=== PATIENT | female | born 1970 | race Two or more races ===

== ENCOUNTER 2020-01-10 09:41 | Inpatient (IN) | payer MEDICAID ==
[~2020-01-10] VITALS: Ht 154.9 cm; Wt 66.2 kg
[2020-01-10 10:15] VITALS: BP 124/65
--- NOTE | 2020-01-10 10:15 | NUR ---
ED Nurse Note: Pt walked into ED for mid abdominal pain for 3 days. Pt also had nausea and vomitingx3 days. Pt denies diarrhea, bodyaches, chills. She is alert and orientedx4, ambulatory. Set up on monitor. Pt has been seen by GUICHO.
--- NOTE | 2020-01-10 10:38 | Emergency Room Report ---
History of Present Illness General Chief Complaint: Abdominal Pain Source: Patient Present Illness HPI 49-year-old female with no prior medical history presents with epigastric pain radiating to the right upper quadrant on and off for the past 2 days. She states the pain is worsened after eating. Denies dysuria, flank pain, hematuria, history of stone, difficulty voiding, diarrhea, fever, chills, rash, chest pain, shortness of breath, or other complaints The patient's symptoms were gradual onset, severity was moderate, duration since intermittently 1 to 2 days. Quality: Aching Past medical history: Denies Past surgical history: Hysterectomy Smoking: Denies Alcohol use: Denies Drug use: Denies Review of systems: CONST: No fevers or chills, No night sweats PULMONARY: No productive cough, No shortness of breath CARDIAC: No chest pain, No palpitations GI: No vomiting, No diarrhea , No melena_or_BRBPR : No dysuria, No hematuria, No discharge NEURO: No new_focal_weakness_or_numbness, No confusion, No vision changes 14 point Review of Systems is otherwise negative except per HPI Physical Exam: GENERAL: Awake_alert_ nontoxic, no acute distress Spo2 99% on RA -normal EYES: Extraocular muscles are intact. Conjunctivae clear. Lids without swelling ENT: External nose and ear normal_in_appearance. Oropharynx clear. Head_atraumatic, Moist_oral_mucosa NECK: No JVD. No meningismus. No thyromegaly. Supple. Trachea midline RESP: Normal respiratory effort. Symmetric rise. No stridor. Clear_to_auscultation_No_rales_No_wheezes CARDIAC: Regular rate and regular rhytm. No_significant pedal edema. ABDOMEN: Soft. Nondistended. Nontender_No_rebound_or_guarding. Positive Gonzales sign. Negative CVA tenderness to palpation. Negative psoas, negative Rovsing's, negative obturator sign MSK: Normal muscle tone, without rigidity. Extremities without asymmetric deformity or swelling. SKIN: Warm and dry. No visible cyanosis or pallor NEUROLOGIC: Alert, oriented x3. Motor_and_sensation_grossly_intact. No truncal ataxia. Gait_normal Psych: Normal mood and affect, normal judgment and insight - COORDINATION OF CARE Case was discussed with: Patient Any labs and imaging that were ordered were interpreted as part of the medical decision making: Medical Decision Making/Plan: Differential diagnosis includes cholecystitis, choledocholithiasis, hepatitis, small bowel obstruction, volvulus, AAA, pancreatitis, atypical appendicitis, gastroparesis, gastritis, peptic ulcer disease, among others. Patient is well appearing with stable vital signs. Abdominal exam is non peritoneal with no guarding or rebound. Voluntary Gonzales sign. Labs show obstructive transaminitis. Right upper quadrant ultrasound shows dilated common bile duct with stone at the biliary neck. Also has cholelithiasis without gallbladder wall thickening. Given labs and common bile duct dilation, concern for choledocholithiasis. I spoke with Dr. Snell, and reviewed the patients presentation, workup, results, and treatment. They will admit the patient for further care and evaluation, and assume care of the patient at this time. Allergies: Coded Allergies: Shrimp (Verified Allergy, Unknown, 01/10/20) COVID-19 Screening Contact w/high risk pt: No Experienced COVID-19 symptoms?: No COVID-19 Testing performed OFFLINE EDITOR: No Patient History Last Menstrual Period: na Nursing Documentation-PM Past Medical History: No Stated History Physical Exam Vital Signs Date Time Temp Pulse Resp B/P (MAP) Pulse Ox O2 Delivery O2 Flow Rate FiO2 01/10/20 09:48 97.9 69 15 126/67 (86) 98 Room Air Sp02 EP Interpretation: reviewed, normal Medical Decision Making Diagnostic Impression: Primary Impression: Choledocholithiasis Additional Impressions: Transaminitis Postprandial abdominal pain in right upper quadrant Nausea Cholelithiasis EKG Diagnostic Results Troponin ordered: No Rhythm Strip Diag. Results Rhythm Strip Time: 10:37 EP Interpretation: yes Rate: 69 Rhythm: NSR, no PVC's, no ectopy CT/MRI/US Diagnostic Results CT/MRI/US Diagnostic Results : Impression US ABD Complete Indication: Abdominal pain, abnormal liver function tests Technique: Santos-scale and duplex images of the upper abdomen were obtained Comparison: none Findings: Gallbladder demonstrates gallstones. No wall thickening nor pericholecystic fluid Sonographic Gonzales's sign is negative. Common bile duct measures 8 mm in diameter. No intrahepatic biliary ductal dilatation. Liver demonstrates normal echogenicity, no focal abnormality. Portal vein and hepatic veins are patent. Pancreas is unremarkable. Spleen is unremarkable. Left kidney measures 9.2 cm in length. Right kidney measures 10.8 cm length. Both kidneys demonstrate normal echogenicity. There is no hydronephrosis. No focal abnormality . Non- aneurysmal abdominal aorta . Impression: Cholelithiasis Mildly dilated common bile duct. Downstream obstruction not completely excludable. Correlate with liver function tests Reevaluation Time: 10:37 Last Vital Signs Date Time Temp Pulse Resp B/P (MAP) Pulse Ox O2 Delivery O2 Flow Rate FiO2 01/10/20 09:48 97.9 69 15 126/67 (86) 98 Room Air Status: improved Disposition: ADMITTED INPATIENT Admit Decision Time: 10:37 Condition: Stable Scripts No Active Prescriptions or Reported Meds Referrals: NOT CHOSEN IPA/MD,REFERRING (PCP) Patient Instructions: Abdominal Pain During Millie Castro D.O. Jan 10, 2020 10:38
[2020-01-10 10:50] LABS: APPEARANCE,URINE CLEAR; BILIRUBIN, URINE 1+ (NEGATIVE); COLOR,URINE BROWN; GLUCOSE, URINE (UA) NEGATIVE (NEGATIVE); KETONES,URINE 1+ (NEGATIVE); LEUKOCYTE ESTERASE ,URINE 1+ (NEGATIVE); NITRITE,URINE NEGATIVE (NEGATIVE); PH,URINE 5 (4.5-8.0); PROTEIN,URINE 1+ (NEGATIVE); UROBILINOGEN,URINE 4 MG/DL (0.0-1.0)
[2020-01-10 10:53] LABS: ANION GAP 5 mmol/L (5-15); BASOPHILS % (AUTO) 0.9 % (0.0-2.0); BLOOD UREA NITROGEN 18 mg/dL (7-18); CALCIUM 8.8 MG/DL (8.5-10.1); CARBON DIOXIDE 27 MMOL/L (21-32); CHLORIDE 112 MMOL/L (98-107); CREATININE 0.8 MG/DL (0.55-1.30); EOSINOPHILS % (AUTO) 0.2 % (0.0-3.0); HEMATOCRIT 35.2 % (37.0-47.0); HEMOGLOBIN 12.5 G/DL (12.0-16.0); LYMPHOCYTES % (AUTO) 33.9 % (20.0-45.0); MEAN CORPUSCULAR VOLUME 87 FL (80-99); MONOCYTES % (AUTO) 7.3 % (1.0-10.0); NEUTROPHILS % (AUTO) 57.7 % (45.0-75.0); PLATELET COUNT 242 K/UL (150-450); POTASSIUM 3.9 MMOL/L (3.5-5.1); RED BLOOD COUNT 4.03 M/UL (4.20-5.40); RED CELL DISTRIBUTION WIDTH 11.2 % (11.6-14.8); SODIUM 144 MMOL/L (136-145); WHITE BLOOD COUNT 5.7 K/UL (4.8-10.8)
[2020-01-10 11:06] LABS: ALANINE AMINOTRANSFERASE 841 U/L (12-78); ALBUMIN 3.7 G/DL (3.4-5.0); ALBUMIN/GLOBULIN RATIO 1.2 (1.0-2.7); ALKALINE PHOSPHATASE 281 U/L (46-116); ASPARTATE AMINO TRANSFERASE 663 U/L (15-37); BILIRUBIN,TOTAL 1.7 MG/DL (0.2-1.0)
[2020-01-10 11:08] LABS: BILIRUBIN,DIRECT 1.2 MG/DL (0.0-0.3)
[2020-01-10] MEDS ORDERED: Morphine Sulfate 4mg/ml Inj (IV USE ONLY) IVP ONE (12:00)
[2020-01-10] MEDS ORDERED: Piperacillin/Tazobactam 4.5 GM in NS 110 ML IVPB ONE (12:00)
[2020-01-10 12:40] VITALS: BP 127/68
[2020-01-10] MEDS ORDERED: Miralax 17gm pkt ORAL PRN (13:00)
[2020-01-10] MEDS ORDERED: Nitroglycerin Subl 0.4mg tab SL PRN (13:00)
--- NOTE | 2020-01-10 13:33 | NUR ---
REPORT GIVEN TO GISELA PETERSON AT [facility] PATIENT IS TO BE TRANSFERD TO ROOM [facility]IA [facility] NO PAIN NOW
--- NOTE | 2020-01-10 14:12 | Diagnostic Imaging Report ---
Indication: Abdominal pain, abnormal liver function tests Technique: Santos-scale and duplex images of the upper abdomen were obtained Comparison: none Findings: Gallbladder demonstrates gallstones. No wall thickening nor pericholecystic fluid Sonographic Gonzales's sign is negative. Common bile duct measures 8 mm in diameter. No intrahepatic biliary ductal dilatation. Liver demonstrates normal echogenicity, no focal abnormality. Portal vein and hepatic veins are patent. Pancreas is unremarkable. Spleen is unremarkable. Left kidney measures 9.2 cm in length. Right kidney measures 10.8 cm length. Both kidneys demonstrate normal echogenicity. There is no hydronephrosis. No focal abnormality . Non-aneurysmal abdominal aorta . Impression: Cholelithiasis Mildly dilated common bile duct. Downstream obstruction not completely excludable. Correlate with liver function tests
--- NOTE | 2020-01-10 14:30 | NUR ---
NURSE NOTES: Report received from Karissa PETERSON at the ER. Patient admitted via gurney, AxOx4, not in distress, no complaints of pain at this time, last given Morphine IV at ER with relief of pain. Patient is currently NPO with the exception of meds and ice chips, reinforced education and patient verbalized understanding. PIV on left AC patent and intact. Vital signs stable on transfer. Patient's skin is intact. Belongings intact and signed by patient. All admission orders done by Dr. Snell. Bed low and locked, siderails up x 2, call light placed within reach and instructed to call nurse for assistance. Will continue to monitor.
[2020-01-10] MEDS: D5 1/2NS 1,000 ML IV SCH (15:23)
[2020-01-10 16:00] VITALS: BP 120/68
--- NOTE | 2020-01-10 19:32 | NUR ---
NURSE HAND-OFF: Important Events on Shift: Admitted from ER, NPO post midnight; Dr. Ortega notified of referral Patient Status: Stable Diet: Clear liquids, NPO p midnight Pending Orders: None Pending Results/Labs: Labs in AM Pending MD notification: None Latest Vital Signs: Temperature 97.0 , Pulse 59 , B/P 120 /68 , Respiratory Rate 17 , O2 SAT 94 , Room Air, O2 Flow Rate . Vital Sign Comment: Latest Herron Fall Score: 20 Fall Risk: Low Risk Safety Measures: Call light Within Reach, Bed Alarm Zone 1, Side Rails Side Rails x2, Bed position Low and Locked. Fall Precautions: Patient Fall Education Report given to Wing RN.
--- NOTE | 2020-01-10 19:33 | NUR ---
NURSE NOTES: The patient is alert and oriented x4 and was calm and relaxed. She is on bedrest but can ambulate to the bathroom with a steady gait.She has a left AC 20g that is intact and asymptomatic running D5 0.45% NS @ 75 ml/hr well tolerated.The skin is clear and intact.The Bed in low level, call light within easy reach and siderails up x2. Will continue to monitor as indicated.
[2020-01-10 20:00] VITALS: BP 138/80
--- NOTE | 2020-01-10 20:01 | History & Physical ---
History and Physical History & Physicial Dictated for Int Med-Dr Acosta no. [id number] Orestes Gomez MD Jan 10, 2020 20:01
[2020-01-10] MEDS: Heparin 5000 units/ml inj SUBQ SCH (21:20)
--- NOTE | 2020-01-10 22:00 | History and Physical Report ---
DATE OF ADMISSION: 01/10/2020 CHIEF COMPLAINT: The patient is a 49-year-old female, who presents with chief complaint of right upper quadrant pain. HISTORY OF PRESENT ILLNESS: The present illness began two days prior to admission. The patient began to experience epigastric pain. Pain is now located over the right upper quadrant. The patient states symptoms are worse after eating. Pain is on and off. The patient presented to [facility]. An ultrasound of the gallbladder revealed cholelithiasis. The patient is admitted with cholelithiasis to rule out acute cholecystitis. REVIEW OF SYSTEMS: CONSTITUTIONAL: The patient denies weight loss or weight gain. The patient denies fevers or chills. HEENT: The patient denies ear or throat pain. The patient denies headache. CARDIOVASCULAR: The patient denies palpitations or chest pain. CHEST: The patient denies wheeze or shortness of breath. ABDOMINAL: The patient complains of right upper quadrant pain as above. The patient denies nausea, vomiting, diarrhea, or constipation. GENITOURINARY: The patient denies dysuria or increased frequency of urination. NEUROMUSCULAR: The patient denies seizures or generalized weakness. PAST MEDICAL HISTORY: The patient denies. PAST SURGICAL HISTORY: Significant for total abdominal hysterectomy. CURRENT MEDICATIONS: The patient denies. ALLERGIES: No known drug allergies, however, the patient is allergic to shrimp. SOCIAL HISTORY: The patient is and is employed in housekeeping. The patient denies tobacco or alcohol use. PHYSICAL EXAMINATION: VITAL SIGNS: Temperature 97.9, respirations 15, pulse 69, and blood pressure 126/67. GENERAL: The patient is a well-developed, well-nourished female, in no apparent distress. HEENT: Eyes, pupils equal and responsive to light and accommodation. Extraocular movements are intact. NECK: Supple. No lymphadenopathy. CHEST: Lungs are clear to auscultation bilaterally without wheezes or rales. CARDIOVASCULAR: Regular rhythm and rate. S1, S2 are normal without murmurs, rubs, or gallops. ABDOMEN: Soft, nondistended with decreased bowel sounds. There is tenderness to palpation over the epigastric region and right upper quadrant. There is no rebound or guarding noted. EXTREMITIES: Negative for clubbing, cyanosis, or edema. RECTAL: Not performed. GENITAL: Not performed. NEUROLOGICAL: Cranial nerves II through XII are grossly intact without focal deficits. Motor strength is 5/5 bilaterally intact. Deep tendon reflexes are 2+, plantar. LABORATORY STUDIES: WBC 5.7, hemoglobin 12.5, hematocrit 35.2, platelets 242,000. Sodium 144, potassium 3.9, chloride 112, CO2 of 27, BUN 18, creatinine 0.8, glucose 114. Total bilirubin elevated at 1.7, direct bilirubin elevated at 1.2, AST elevated at 663, ALT elevated at 841, alkaline phosphatase at 81. An abdominal ultrasound revealed mildly dilated common bile duct with multiple gallstones in the gallbladder. Gonzales sign was negative. There was no inflammation of the gallbladder wall. ASSESSMENT: This is a 49-year-old female with: 1. Right upper quadrant abdominal pain. 2. Cholelithiasis. 3. Elevated liver function tests. TREATMENT: Cholelithiasis/elevated liver function tests. A Gastroenterology consultation has been obtained with Dr. Roe Ortega. A General Surgery consultation has been obtained with Dr. Cabral. We will follow recommendations of Gastroenterology and Surgery. Orestes Gomez M.D. DR: Jasson JOB#: [id number] CC:
[2020-01-11] VITALS: BP 156/80
[2020-01-11] MEDS: D5 1/2NS 1,000 ML IV SCH ×2 (03:25→16:25)
[2020-01-11 04:00] VITALS: BP 140/78
[2020-01-11 06:06] LABS: BASOPHILS % (AUTO) 2.8 % (0.0-2.0); EOSINOPHILS % (AUTO) 2.6 % (0.0-3.0); HEMATOCRIT 39.9 % (37.0-47.0); HEMOGLOBIN 14.1 G/DL (12.0-16.0); LYMPHOCYTES % (AUTO) 40.3 % (20.0-45.0); MEAN CORPUSCULAR VOLUME 88 FL (80-99); MONOCYTES % (AUTO) 5.5 % (1.0-10.0); NEUTROPHILS % (AUTO) 48.8 % (45.0-75.0); PLATELET COUNT 203 K/UL (150-450); RED BLOOD COUNT 4.56 M/UL (4.20-5.40); RED CELL DISTRIBUTION WIDTH 11.3 % (11.6-14.8); WHITE BLOOD COUNT 6.7 K/UL (4.8-10.8)
[2020-01-11 06:25] LABS: ALANINE AMINOTRANSFERASE 637 U/L (12-78); ALBUMIN 3.4 G/DL (3.4-5.0); ALBUMIN/GLOBULIN RATIO 0.9 (1.0-2.7); ALKALINE PHOSPHATASE 265 U/L (46-116); AMYLASE 93 U/L (25-115); ANION GAP 10 mmol/L (5-15); ASPARTATE AMINO TRANSFERASE 289 U/L (15-37); BILIRUBIN,TOTAL 0.8 MG/DL (0.2-1.0); BLOOD UREA NITROGEN 9 mg/dL (7-18); CALCIUM 8.7 MG/DL (8.5-10.1); CARBON DIOXIDE 26 MMOL/L (21-32); CHLORIDE 106 MMOL/L (98-107); CREATININE 0.7 MG/DL (0.55-1.30); POTASSIUM 3.8 MMOL/L (3.5-5.1); SODIUM 141 MMOL/L (136-145)
--- NOTE | 2020-01-11 07:09 | NUR ---
HAND-OFF: Report given to Kasandra PETERSON.The patient remained NPO as indicated
--- NOTE | 2020-01-11 07:09 | NUR ---
NURSE NOTES: Report received from Wing RN. AxOx4, not in distress, no complaints of pain overnight. Patient is currently NPO with the exception of meds and ice chips, reinforced education and patient verbalized understanding. PIV on left AC patent and intact infusing D5 1/2 NS @ 75ml/hr. Bed low and locked, siderails up x 2, call light placed within reach and instructed to call nurse for assistance. Will continue to monitor.
[2020-01-11 08:00] VITALS: BP 107/77
[2020-01-11] MEDS: Pantoprazole Inj IVP SCH (09:44)
[2020-01-11] MEDS: Heparin 5000 units/ml inj SUBQ SCH ×2 (09:45→21:40)
--- NOTE | 2020-01-11 11:47 | Consultation ---
History of Present Illness General Date patient seen: Jan 11, 2020 Chief Complaint: Abdominal Pain Present Illness HPI 49-year-old female with no prior medical history presents with epigastric pain radiating to the right upper quadrant on and off for the past 2 days. An abdominal US showed dilated common bile duct. She is admitted for further management. Allergies: Coded Allergies: Shrimp (Verified Allergy, Unknown, 01/10/20) Medication History No Active Prescriptions or Reported Meds Patient History Healthcare decision maker Resuscitation status Advanced Directive on File Review of Systems All Other Systems: negative except mentioned in HPI Physical Exam General Appearance: WD/WN Lines, tubes and drains: peripheral HEENT: normocephalic, atraumatic Neck: non-tender, supple Respiratory/Chest: chest wall non-tender, lungs clear Breasts: no masses Cardiovascular/Chest: normal rate Abdomen: normal bowel sounds Genitourinary/Rectal: normal genital exam Extremities: normal range of motion, non-tender Last 24 Hour Vital Signs Date Time Temp Pulse Resp B/P (MAP) Pulse Ox O2 Delivery O2 Flow Rate FiO2 01/11/20 09:00 Room Air 01/11/20 08:00 97.7 61 16 107/77 (87) 98 01/11/20 04:00 97.5 62 18 140/78 (98) 99 01/11/20 00:00 97.0 63 18 156/80 (105) 100 01/10/20 21:00 Room Air 01/10/20 20:00 96.8 68 18 138/80 (99) 97 01/10/20 16:00 97.0 59 17 120/68 (85) 94 01/10/20 15:13 Room Air 01/10/20 13:30 97.8 78 18 120/70 99 Room Air 01/10/20 12:40 97.8 72 17 127/68 98 Room Air 96 01/10/20 12:38 97.8 Intake and Output 01/10/20 01/11/20 19:00 07:00 Intake Total 375 ml 1185 ml Balance 375 ml 1185 ml Intake Oral 300 ml IV Total 75 ml 825 ml Other 360 ml # Voids 3 Laboratory Tests Test 01/11/20 05:05 White Blood Count 6.7 K/UL (4.8-10.8) Red Blood Count 4.56 M/UL (4.20-5.40) Hemoglobin 14.1 G/DL (12.0-16.0) Hematocrit 39.9 % (37.0-47.0) Mean Corpuscular Volume 88 FL (80-99) Mean Corpuscular Hemoglobin 31.0 PG (27.0-31.0) Mean Corpuscular Hemoglobin Concent 35.4 G/DL (32.0-36.0) Red Cell Distribution Width 11.3 % (11.6-14.8) L Platelet Count 203 K/UL (150-450) Mean Platelet Volume 6.8 FL (6.5-10.1) Neutrophils (%) (Auto) 48.8 % (45.0-75.0) Lymphocytes (%) (Auto) 40.3 % (20.0-45.0) Monocytes (%) (Auto) 5.5 % (1.0-10.0) Eosinophils (%) (Auto) 2.6 % (0.0-3.0) Basophils (%) (Auto) 2.8 % (0.0-2.0) H Activated Partial Thromboplast Time 23 SEC (23-33) Sodium Level 141 MMOL/L (136-145) Potassium Level 3.8 MMOL/L (3.5-5.1) Chloride Level 106 MMOL/L (98-107) Carbon Dioxide Level 26 MMOL/L (21-32) Anion Gap 10 mmol/L (5-15) Blood Urea Nitrogen 9 mg/dL (7-18) Creatinine 0.7 MG/DL (0.55-1.30) Estimat Glomerular Filtration Rate > 60 mL/min (>60) Glucose Level 108 MG/DL (74-106) H Calcium Level 8.7 MG/DL (8.5-10.1) Total Bilirubin 0.8 MG/DL (0.2-1.0) Aspartate Amino Transf (AST/SGOT) 289 U/L (15-37) H Alanine Aminotransferase (ALT/SGPT) 637 U/L (12-78) H Alkaline Phosphatase 265 U/L (46-116) H Total Protein 7.4 G/DL (6.4-8.2) Albumin 3.4 G/DL (3.4-5.0) Globulin 4.0 g/dL Albumin/Globulin Ratio 0.9 (1.0-2.7) L Amylase Level 93 U/L (25-115) Lipase 250 U/L (73-393) Height (Feet): 5 Height (Inches): 1.00 Weight (Pounds): 143 Medications Current Medications Medications (Trade) Dose Ordered Sig/Isabela Route PRN Reason Start Time Stop Time Status Last Admin Dose Admin Acetaminophen (Tylenol) 650 mg Q4H PRN ORAL fever (T>100.5F) 01/10/20 13:00 02/09/20 12:59 Dextrose (Dextrose 50%) 25 ml Q30M PRN IV Hypoglycemia 01/10/20 13:00 04/09/20 12:59 Dextrose (Dextrose 50%) 50 ml Q30M PRN IV Hypoglycemia 01/10/20 13:00 04/09/20 12:59 Dextrose/Sodium Chloride 1,000 ml @ 75 mls/hr [id number] IV 01/10/20 13:45 02/09/20 13:44 01/11/20 03:25 Diphenhydramine HCl (Benadryl) 25 mg Q6H PRN ORAL Itching/Pruritis 01/10/20 13:00 02/09/20 12:59 Heparin Sodium (Porcine) (Heparin 5000 units/ml) 5,000 units EVERY 12 HOURS SUBQ 01/10/20 21:00 02/24/20 20:59 01/11/20 09:45 Nitroglycerin (Ntg) 0.4 mg Q5M X 3 DOSES PRN SL Prn Chest Pain 01/10/20 13:00 02/09/20 12:59 Ondansetron HCl (Zofran) 4 mg Q6H PRN IVP Nausea & Vomiting 01/10/20 13:00 02/09/20 12:59 Pantoprazole (Protonix) 40 mg DAILY IVP 01/11/20 09:00 02/10/20 08:59 01/11/20 09:44 Polyethylene Glycol (Miralax) 17 gm HSPRN PRN ORAL Constipation 01/10/20 13:00 02/09/20 12:59 Temazepam (Restoril) 15 mg HSPRN PRN ORAL Insomnia 01/10/20 13:00 01/17/20 12:59 Assessment/Plan Problem List: (1) Intractable abdominal pain ICD Codes: R10.9 - Unspecified abdominal pain SNOMED: 49944157 (2) Choledocholithiasis ICD Codes: K80.50 - Calculus of bile duct without cholangitis or cholecystitis without obstruction SNOMED: 404470685, 946532530 Assessment/Plan: NPO iv fluids symptomatic treatment GI to see dvt prophylaxis. Cathy Snell MD Jan 11, 2020 11:47
[2020-01-11 12:00] VITALS: BP 132/80
--- NOTE | 2020-01-11 12:21 | General Progress Note ---
Subjective ROS Limited/Unobtainable: Yes Allergies: Coded Allergies: Shrimp (Verified Allergy, Unknown, 01/10/20) Objective Last 24 Hour Vital Signs Date Time Temp Pulse Resp B/P (MAP) Pulse Ox O2 Delivery O2 Flow Rate FiO2 01/11/20 09:00 Room Air 01/11/20 08:00 97.7 61 16 107/77 (87) 98 01/11/20 04:00 97.5 62 18 140/78 (98) 99 01/11/20 00:00 97.0 63 18 156/80 (105) 100 01/10/20 21:00 Room Air 01/10/20 20:00 96.8 68 18 138/80 (99) 97 01/10/20 16:00 97.0 59 17 120/68 (85) 94 01/10/20 15:13 Room Air 01/10/20 13:30 97.8 78 18 120/70 99 Room Air 01/10/20 12:40 97.8 72 17 127/68 98 Room Air 96 01/10/20 12:38 97.8 Intake and Output 01/10/20 01/11/20 19:00 07:00 Intake Total 375 ml 1185 ml Balance 375 ml 1185 ml Intake Oral 300 ml IV Total 75 ml 825 ml Other 360 ml # Voids 3 Laboratory Tests 01/11/20 05:05: White Blood Count 6.7, Red Blood Count 4.56, Hemoglobin 14.1, Hematocrit 39.9, Mean Corpuscular Volume 88, Mean Corpuscular Hemoglobin 31.0, Mean Corpuscular Hemoglobin Concent 35.4, Red Cell Distribution Width 11.3L, Platelet Count 203, Mean Platelet Volume 6.8, Neutrophils (%) (Auto) 48.8, Lymphocytes (%) (Auto) 40.3, Monocytes (%) (Auto) 5.5, Eosinophils (%) (Auto) 2.6, Basophils (%) (Auto) 2.8H, Activated Partial Thromboplast Time 23, Sodium Level 141, Potassium Level 3.8, Chloride Level 106, Carbon Dioxide Level 26, Anion Gap 10, Blood Urea Nitrogen 9, Creatinine 0.7, Estimat Glomerular Filtration Rate > 60, Glucose Level 108H, Calcium Level 8.7, Total Bilirubin 0.8, Aspartate Amino Transf (AST/SGOT) 289H, Alanine Aminotransferase (ALT/SGPT) 637H, Alkaline Phosphatase 265H, Total Protein 7.4, Albumin 3.4, Globulin 4.0, Albumin/Globulin Ratio 0.9L, Amylase Level 93, Lipase 250 Height (Feet): 5 Height (Inches): 1.00 Weight (Pounds): 143 General Appearance: no apparent distress EENT: normal ENT inspection Neck: supple Cardiovascular: normal rate Respiratory/Chest: lungs clear Abdomen: hypoactive bowel sounds, tender Extremities: non-tender Assessment/Plan Problem List: (1) Cholelithiasis ICD Codes: K80.20 - Calculus of gallbladder without cholecystitis without obstruction SNOMED: 882951667, 201839200 (2) Nausea ICD Codes: R11.0 - Nausea SNOMED: 842475692 (3) Transaminitis ICD Codes: R74.01 - Elevation of levels of liver transaminase levels SNOMED: 320821063, 309616526 (4) Intractable abdominal pain ICD Codes: R10.9 - Unspecified abdominal pain SNOMED: 11646650 Assessment/Plan: us reviewed ordered ERCP plan ERCP if needed repeat labs in Roe Nugent MD Jan 11, 2020 12:21
--- NOTE | 2020-01-11 13:41 | NUR ---
NURSE NOTES: Patient brought down to MRI in stable condition via wheelchair. PIV patent on left AC.
--- NOTE | 2020-01-11 14:50 | NUR ---
NURSE NOTES: Patient returned from MRI procedure in stable condition. Received orders from Dr. Ortega that patient may have clear liquid diet. Orders noted and carried out.
--- NOTE | 2020-01-11 15:58 | Internal Med Progress Note ---
Subjective Physician Name Zan Acosta Attending Physician Zan Acosta MD Current Medications Medications (Trade) Dose Ordered Sig/Isabela Route PRN Reason Start Time Stop Time Status Last Admin Dose Admin Acetaminophen (Tylenol) 650 mg Q4H PRN ORAL fever (T>100.5F) 01/10/20 13:00 02/09/20 12:59 Dextrose (Dextrose 50%) 25 ml Q30M PRN IV Hypoglycemia 01/10/20 13:00 04/09/20 12:59 Dextrose (Dextrose 50%) 50 ml Q30M PRN IV Hypoglycemia 01/10/20 13:00 04/09/20 12:59 Dextrose/Sodium Chloride 1,000 ml @ 75 mls/hr [id number] IV 01/10/20 13:45 02/09/20 13:44 01/11/20 03:25 Diphenhydramine HCl (Benadryl) 25 mg Q6H PRN ORAL Itching/Pruritis 01/10/20 13:00 02/09/20 12:59 Heparin Sodium (Porcine) (Heparin 5000 units/ml) 5,000 units EVERY 12 HOURS SUBQ 01/10/20 21:00 02/24/20 20:59 01/11/20 09:45 Nitroglycerin (Ntg) 0.4 mg Q5M X 3 DOSES PRN SL Prn Chest Pain 01/10/20 13:00 02/09/20 12:59 Ondansetron HCl (Zofran) 4 mg Q6H PRN IVP Nausea & Vomiting 01/10/20 13:00 02/09/20 12:59 Pantoprazole (Protonix) 40 mg DAILY IVP 01/11/20 09:00 02/10/20 08:59 01/11/20 09:44 Polyethylene Glycol (Miralax) 17 gm HSPRN PRN ORAL Constipation 01/10/20 13:00 02/09/20 12:59 Temazepam (Restoril) 15 mg HSPRN PRN ORAL Insomnia 01/10/20 13:00 01/17/20 12:59 Allergies: Coded Allergies: Shrimp (Verified Allergy, Unknown, 01/10/20) Subjective awake, alert, responsive, denies any abdominal pain or chest pain, liver function improving. Objective Last Vital Signs Date Time Temp Pulse Resp B/P (MAP) Pulse Ox O2 Delivery O2 Flow Rate FiO2 01/11/20 12:00 98.1 69 16 132/80 (97) 99 01/11/20 09:00 Room Air 01/10/20 12:40 96 Laboratory Tests Test 01/11/20 05:05 White Blood Count 6.7 K/UL (4.8-10.8) Red Blood Count 4.56 M/UL (4.20-5.40) Hemoglobin 14.1 G/DL (12.0-16.0) Hematocrit 39.9 % (37.0-47.0) Mean Corpuscular Volume 88 FL (80-99) Mean Corpuscular Hemoglobin 31.0 PG (27.0-31.0) Mean Corpuscular Hemoglobin Concent 35.4 G/DL (32.0-36.0) Red Cell Distribution Width 11.3 % (11.6-14.8) L Platelet Count 203 K/UL (150-450) Mean Platelet Volume 6.8 FL (6.5-10.1) Neutrophils (%) (Auto) 48.8 % (45.0-75.0) Lymphocytes (%) (Auto) 40.3 % (20.0-45.0) Monocytes (%) (Auto) 5.5 % (1.0-10.0) Eosinophils (%) (Auto) 2.6 % (0.0-3.0) Basophils (%) (Auto) 2.8 % (0.0-2.0) H Activated Partial Thromboplast Time 23 SEC (23-33) Sodium Level 141 MMOL/L (136-145) Potassium Level 3.8 MMOL/L (3.5-5.1) Chloride Level 106 MMOL/L (98-107) Carbon Dioxide Level 26 MMOL/L (21-32) Anion Gap 10 mmol/L (5-15) Blood Urea Nitrogen 9 mg/dL (7-18) Creatinine 0.7 MG/DL (0.55-1.30) Estimat Glomerular Filtration Rate > 60 mL/min (>60) Glucose Level 108 MG/DL (74-106) H Calcium Level 8.7 MG/DL (8.5-10.1) Total Bilirubin 0.8 MG/DL (0.2-1.0) Aspartate Amino Transf (AST/SGOT) 289 U/L (15-37) H Alanine Aminotransferase (ALT/SGPT) 637 U/L (12-78) H Alkaline Phosphatase 265 U/L (46-116) H Total Protein 7.4 G/DL (6.4-8.2) Albumin 3.4 G/DL (3.4-5.0) Globulin 4.0 g/dL Albumin/Globulin Ratio 0.9 (1.0-2.7) L Amylase Level 93 U/L (25-115) Lipase 250 U/L (73-393) Microbiology Date/Time Source Procedure Growth Status 01/10/20 11:38 Nasopharynx SARS-CoV-2 RdRp Gene Assay - Final Complete Intake and Output 01/10/20 01/11/20 19:00 07:00 Intake Total 375 ml 1185 ml Balance 375 ml 1185 ml Intake Oral 300 ml IV Total 75 ml 825 ml Other 360 ml # Voids 3 Objective Physical Exam General: No acute distress, awake and alert HEENT: NCAT, sclera anicteric, PERRL, EOMI. Neck: Supple, no significant jugular venous distention, Lungs: Good inspiratory effort, no accessory muscle use, clear to auscultation bilaterally, no Wheeze or Rales. Heart: Regular rate and rhythm, normal S1/S2, no murmurs/gallops Abdomen: soft, nontender, nondistended. Normoactive bowel sounds. / Rectal: Refused and deferred. Extremities: No Cyanosis , clubbing or edema. Neuro: A&O x 3, Able to move all extremities Skin: warm, no rashes or lesions Psych: Normal mood and affect Assessment/Plan Assessment/Plan ASSESSMENT: This is a 49-year-old female with: 1. Right upper quadrant abdominal pain. 2. Cholelithiasis. 3. Elevated liver function tests. TREATMENT: Cholelithiasis/elevated liver function tests. A Gastroenterology consultation has been obtained with Dr. Roe Ortega. A General Surgery consultation has been obtained with Dr. Cabral. We will follow recommendations of Gastroenterology and Surgery. Zan Acosta MD Jan 11, 2020 15:58
[2020-01-11 16:00] VITALS: BP 105/65
--- NOTE | 2020-01-11 16:05 | NUR ---
CASE MANAGEMENT:INITIAL REVIEW 49 YR OLD FEMALE FROM HOME CC;ABDOMINAL PAIN SI;CHOLEDOCHOLITHIASIS. CHOLELITHIASIS. TRANSAMINITIS. 97.9 69 16 126/67 98% ON RA T-BILI 1.7 D-BILI 1.2 AST 663 ALT 841 ALP 281 UA+ PROTEIN, KETONES, BILIRUBIN, UROBILINOGEN, LEUKOCYTE ESTERASE COVID RAPID ~ NEGATIVE ABD US ~ Cholelithiasis Mildly dilated common bile duct. Downstream obstruction not completely excludable. Correlate with liver function tests IS;ZOFRAN IV ZOSYN IV MORPHINE IV ADMITTED TO MED SURG 01/10/20 MED SURG STATUS DCP;FROM HOME
--- NOTE | 2020-01-11 16:26 | Diagnostic Imaging Report ---
Indication: Abdominal pain Technique: Coronal and axial single shot fast spin-echo breath-hold, axial T2 FRFSE, 2-D thick slab MRCP, AXIAL 2-D FIESTA fat saturated, axial 3-D dual echo breath-hold, water weighted axial LAVA FLEX, revealed 3-D MRCP images were obtained of the abdomen. MIP reconstructions were generated of the bile ducts Comparison: none Findings: Gallbladder contains multiple gallstones, also reported on prior sonogram. There is questionably a small amount of pericholecystic fluid and gallbladder wall edema, best appreciated on the coronal MRCP and T2. The common bile duct is ectatic, measuring up to 10 mm in diameter, but there is no evidence of downstream obstructive lesion or choledocholithiasis. The intrahepatic ducts are unremarkable. The pancreatic duct is not well-demonstrated. The liver demonstrates a tiny cyst in segment 2. The pancreas, spleen, adrenals are unremarkable. There are bilateral renal cysts noted. The included pelvic viscera on the coronal images are unremarkable. Impression: Cholelithiasis Equivocal mild gallbladder wall thickening and edema raises possibility of acute cholecystitis. Consider hepatobiliary nuclear scan if there is high clinical suspicion. Mildly ectatic extrahepatic bile ducts, without evidence of choledocholithiasis or other downstream obstructive lesion Incidental findings of hepatic and renal cysts
--- NOTE | 2020-01-11 19:00 | NUR ---
NURSE NOTES: Received report from KRISETN Slaughter. AAO x 4, on room air, ambulatory. IV site intact and running IVF. Denies pain on abd. No acute distress noted. Bed locked, lowest position, alarm on, side rails up, call light within reach. Will continue to monitor.
--- NOTE | 2020-01-11 19:01 | NUR ---
NURSE HAND-OFF: Important Events on Shift:S/P MRI abdomen without contrast, diet advanced to clear liquids Patient Status: Stable Diet: Clear Liquid Pending Orders: None Pending Results/Labs:Labs in AM Pending MD notification: Latest Vital Signs: Temperature 97.5 , Pulse 67 , B/P 105 /65 , Respiratory Rate 16 , O2 SAT 98 , Room Air, O2 Flow Rate . Vital Sign Comment: Latest [place] Fall Score: 20 Fall Risk: Low Risk Safety Measures: Call light Within Reach, Bed Alarm Zone 1, Side Rails Side Rails x1, Bed position Low and Locked. Fall Precautions: Yellow Socks Yellow Gown Door Sign Patient Fall Education Report given to Esther PETERSON.
[2020-01-11 20:00] VITALS: BP 131/76
--- NOTE | 2020-01-11 20:31 | Consultation ---
History of Present Illness General Date patient seen: Jan 11, 2020 Reason for Hospitalization: Abdominal Pain Present Illness HPI 49F presented with acute RUQ abd pain radiating to back with associated nausea. noted to have abnormal lft and cholelithiasis. admitted for care. surgery called to evaluate. patient seen, chart reviewed, patient examined. states pain resolved now. minimal nausa. tolerating clears. US and MRI noted Allergies: Coded Allergies: Shrimp (Verified Allergy, Unknown, 01/10/20) COVID-19 Screening Contact w/high risk pt: No Experienced COVID-19 symptoms?: No Medication History No Active Prescriptions or Reported Meds Patient History History Provided By: Patient, Medical Record, PMD Healthcare decision maker Resuscitation status Advanced Directive on File Past Medical/Surgical History Past Medical/Surgical History: (1) Choledocholithiasis (2) Transaminitis (3) Nausea (4) Postprandial abdominal pain in right upper quadrant (5) Intractable abdominal pain (6) Cholelithiasis Review of Systems Review of Symptoms General ROS: no weight loss or fever Psychological ROS: no depression or mood changes, no memory loss Ophthalmic ROS: no visual changes or eye irritation ENT ROS: no nasal congestion, hearing loss, dizziness Allergy and Immunology ROS: no allergic symptoms or urticaria Hematological and Lymphatic ROS: no swollen glands, unusual bleeding or bruising Endocrine ROS: no polyuria, polydipsia, weight changes, temperature intolerance Respiratory ROS: no cough, shortness of breath, or wheezing Cardiovascular ROS: no chest pain or dyspnea on exertion Gastrointestinal ROS: denies abdominal pain, bright red blood in stool. Musculoskeletal ROS: no myalgias or arthralgias Neurological ROS: no TIA or stroke symptoms Dermatological ROS: no new or changing skin lesions, rashes or pruritis Physical Exam Physical Exam General appearance: alert, cooperative, no distress, appears stated age Head: Normocephalic, without obvious abnormality, atraumatic Eyes: conjunctivae/corneas clear. PERRL, EOM's intact. Fundi benign Throat: Lips, mucosa, and tongue normal. Teeth and gums normal Neck: supple, symmetrical, trachea midline, no adenopathy, thyroid: not enlarged, symmetric, no tenderness/mass/nodules, no carotid bruit and no JVD Lungs: clear to auscultation bilaterally Heart: regular rate and rhythm, S1, S2 normal, no murmur, click, rub or gallop Abdomen: soft, non-tender. Bowel sounds normal. No masses, no organomegaly Extremities: extremities normal, atraumatic, no cyanosis or edema Pulses: 2+ and symmetric Skin: Skin color, texture, turgor normal. No rashes or lesions Neurologic: Grossly normal Last 24 Hour Vital Signs Date Time Temp Pulse Resp B/P (MAP) Pulse Ox O2 Delivery O2 Flow Rate FiO2 01/11/20 16:00 97.5 67 16 105/65 (78) 98 01/11/20 12:00 98.1 69 16 132/80 (97) 99 01/11/20 09:00 Room Air 01/11/20 08:00 97.7 61 16 107/77 (87) 98 01/11/20 04:00 97.5 62 18 140/78 (98) 99 01/11/20 00:00 97.0 63 18 156/80 (105) 100 01/10/20 21:00 Room Air Intake and Output 01/10/20 01/11/20 19:00 07:00 Intake Total 375 ml 1185 ml Balance 375 ml 1185 ml Intake Oral 300 ml IV Total 75 ml 825 ml Other 360 ml # Voids 3 Laboratory Tests Test 01/11/20 05:05 White Blood Count 6.7 K/UL (4.8-10.8) Red Blood Count 4.56 M/UL (4.20-5.40) Hemoglobin 14.1 G/DL (12.0-16.0) Hematocrit 39.9 % (37.0-47.0) Mean Corpuscular Volume 88 FL (80-99) Mean Corpuscular Hemoglobin 31.0 PG (27.0-31.0) Mean Corpuscular Hemoglobin Concent 35.4 G/DL (32.0-36.0) Red Cell Distribution Width 11.3 % (11.6-14.8) L Platelet Count 203 K/UL (150-450) Mean Platelet Volume 6.8 FL (6.5-10.1) Neutrophils (%) (Auto) 48.8 % (45.0-75.0) Lymphocytes (%) (Auto) 40.3 % (20.0-45.0) Monocytes (%) (Auto) 5.5 % (1.0-10.0) Eosinophils (%) (Auto) 2.6 % (0.0-3.0) Basophils (%) (Auto) 2.8 % (0.0-2.0) H Activated Partial Thromboplast Time 23 SEC (23-33) Sodium Level 141 MMOL/L (136-145) Potassium Level 3.8 MMOL/L (3.5-5.1) Chloride Level 106 MMOL/L (98-107) Carbon Dioxide Level 26 MMOL/L (21-32) Anion Gap 10 mmol/L (5-15) Blood Urea Nitrogen 9 mg/dL (7-18) Creatinine 0.7 MG/DL (0.55-1.30) Estimat Glomerular Filtration Rate > 60 mL/min (>60) Glucose Level 108 MG/DL (74-106) H Calcium Level 8.7 MG/DL (8.5-10.1) Total Bilirubin 0.8 MG/DL (0.2-1.0) Aspartate Amino Transf (AST/SGOT) 289 U/L (15-37) H Alanine Aminotransferase (ALT/SGPT) 637 U/L (12-78) H Alkaline Phosphatase 265 U/L (46-116) H Total Protein 7.4 G/DL (6.4-8.2) Albumin 3.4 G/DL (3.4-5.0) Globulin 4.0 g/dL Albumin/Globulin Ratio 0.9 (1.0-2.7) L Amylase Level 93 U/L (25-115) Lipase 250 U/L (73-393) Height (Feet): 5 Height (Inches): 1.00 Weight (Pounds): 143 Medications Current Medications Medications (Trade) Dose Ordered Sig/Isabela Route PRN Reason Start Time Stop Time Status Last Admin Dose Admin Acetaminophen (Tylenol) 650 mg Q4H PRN ORAL fever (T>100.5F) 01/10/20 13:00 02/09/20 12:59 Dextrose (Dextrose 50%) 25 ml Q30M PRN IV Hypoglycemia 01/10/20 13:00 04/09/20 12:59 Dextrose (Dextrose 50%) 50 ml Q30M PRN IV Hypoglycemia 01/10/20 13:00 04/09/20 12:59 Dextrose/Sodium Chloride 1,000 ml @ 75 mls/hr [id number] IV 01/10/20 13:45 02/09/20 13:44 01/11/20 03:25 Diphenhydramine HCl (Benadryl) 25 mg Q6H PRN ORAL Itching/Pruritis 01/10/20 13:00 02/09/20 12:59 Heparin Sodium (Porcine) (Heparin 5000 units/ml) 5,000 units EVERY 12 HOURS SUBQ 01/10/20 21:00 02/24/20 20:59 01/11/20 09:45 Nitroglycerin (Ntg) 0.4 mg Q5M X 3 DOSES PRN SL Prn Chest Pain 01/10/20 13:00 02/09/20 12:59 Ondansetron HCl (Zofran) 4 mg Q6H PRN IVP Nausea & Vomiting 01/10/20 13:00 02/09/20 12:59 Pantoprazole (Protonix) 40 mg DAILY IVP 01/11/20 09:00 02/10/20 08:59 01/11/20 09:44 Polyethylene Glycol (Miralax) 17 gm HSPRN PRN ORAL Constipation 01/10/20 13:00 02/09/20 12:59 Temazepam (Restoril) 15 mg HSPRN PRN ORAL Insomnia 01/10/20 13:00 01/17/20 12:59 Assessment/Plan Problem List: (1) Choledocholithiasis Assessment & Plan: Gallbladder contains multiple gallstones, also reported on prior sonogram. There is questionably a small amount of pericholecystic fluid and gallbladder wall edema, best appreciated on the coronal MRCP and T2. The common bile duct is ectatic, measuring up to 10 mm in diameter, but there is no evidence of downstream obstructive lesion or choledocholithiasis. The intrahepatic ducts are unremarkable. The pancreatic duct is not well-demonstrated. The liver demonstrates a tiny cyst in segment 2. The pancreas, spleen, adrenals are unremarkable. There are bilateral renal cysts noted. The included pelvic viscera on the coronal images are unremarkable. Impression: Cholelithiasis Equivocal mild gallbladder wall thickening and edema raises possibility of acute cholecystitis. Consider hepatobiliary nuclear scan if there is high clinical suspicion. Mildly ectatic extrahepatic bile ducts, without evidence of choledocholithiasis or other downstream obstructive lesion possible passed stone. ICD Codes: K80.50 - Calculus of bile duct without cholangitis or cholecystitis without obstruction SNOMED: 053231455, 030930145 (2) Transaminitis ICD Codes: R74.01 - Elevation of levels of liver transaminase levels SNOMED: 387764823, 395914696 (3) Nausea ICD Codes: R11.0 - Nausea SNOMED: 632443428 (4) Postprandial abdominal pain in right upper quadrant ICD Codes: R10.11 - Right upper quadrant pain SNOMED: 971294454 (5) Intractable abdominal pain ICD Codes: R10.9 - Unspecified abdominal pain SNOMED: 10235074 (6) Cholelithiasis Assessment & Plan: 49F biliary colic afebrile HD stable labs improved MRI and US noted currently pain resolved no n/v/f/c okay for trial diet outpatient f/u with pcp for surgery referral and consideration of elective cholecystectomy thank you ICD Codes: K80.20 - Calculus of gallbladder without cholecystitis without obstruction SNOMED: 515481605, 934314825 Eliel Cabral Jan 11, 2020 20:31
[2020-01-12] VITALS: BP 121/56
[2020-01-12 04:00] VITALS: BP 118/67
[2020-01-12] MEDS: D5 1/2NS 1,000 ML IV SCH ×2 (05:39→19:05)
--- NOTE | 2020-01-12 06:33 | NUR ---
NURSE HAND-OFF: Important Events on Shift:None Patient Status: stable Diet: Reg Pending Orders: N Pending Results/Labs:AM labs Pending MD notification:N Latest Vital Signs: Temperature 98.0 , Pulse 58 , B/P 118 /67 , Respiratory Rate 18 , O2 SAT 96 , Room Air, O2 Flow Rate . Vital Sign Comment: [] Latest [place] Fall Score: 20 Fall Risk: Low Risk Safety Measures: Call light Within Reach, Bed Alarm Zone 1, Side Rails Side Rails x1, Bed position Low and Locked. Fall Precautions: Yellow Socks Yellow Gown Door Sign Patient Fall Education Addendum: 01/12/20 at 0717 by JULIANA CARRASCO RN RN HAND-OFF: Report given to
--- NOTE | 2020-01-12 07:12 | NUR ---
NURSE NOTES: Pt c/o pain on R shoulder 08/11. Received order from Dr. Acosta Tylenol #3 1tab po Q6 prn pain.
[2020-01-12 07:32] LABS: BASOPHILS % (AUTO) 0.9 % (0.0-2.0); EOSINOPHILS % (AUTO) 2.4 % (0.0-3.0); HEMATOCRIT 39.2 % (37.0-47.0); HEMOGLOBIN 13.9 G/DL (12.0-16.0); LYMPHOCYTES % (AUTO) 41.2 % (20.0-45.0); MEAN CORPUSCULAR VOLUME 87 FL (80-99); MONOCYTES % (AUTO) 6.4 % (1.0-10.0); PLATELET COUNT 247 K/UL (150-450); RED BLOOD COUNT 4.49 M/UL (4.20-5.40); RED CELL DISTRIBUTION WIDTH 11.2 % (11.6-14.8); WHITE BLOOD COUNT 5.3 K/UL (4.8-10.8)
[2020-01-12 07:41] LABS: ALANINE AMINOTRANSFERASE 418 U/L (12-78); ALBUMIN 3.3 G/DL (3.4-5.0); ALKALINE PHOSPHATASE 232 U/L (46-116); ANION GAP 6 mmol/L (5-15); ASPARTATE AMINO TRANSFERASE 134 U/L (15-37); BILIRUBIN,TOTAL 0.7 MG/DL (0.2-1.0); BLOOD UREA NITROGEN 5 mg/dL (7-18); CARBON DIOXIDE 30 MMOL/L (21-32); CHLORIDE 106 MMOL/L (98-107); CREATININE 0.8 MG/DL (0.55-1.30); POTASSIUM 3.7 MMOL/L (3.5-5.1); SODIUM 142 MMOL/L (136-145)
--- NOTE | 2020-01-12 07:55 | NUR ---
NURSE NOTES: Received pt from KRISTEN Santana, pt was resting. C/O right shoulder pain, no abd pain. call light w/in reach.
[2020-01-12 08:00] VITALS: BP 114/81
[2020-01-12] MEDS: Pantoprazole Inj IVP SCH (08:27)
[2020-01-12] MEDS: Tylenol #3 tab (300mg/30mg) ORAL PRN ×2 (08:28→21:24)
[2020-01-12] MEDS: Heparin 5000 units/ml inj SUBQ SCH ×2 (08:31→21:32)
[2020-01-12 12:00] VITALS: BP 142/58
--- NOTE | 2020-01-12 12:21 | Surgery Progress Note ---
Surgery Progress Note Subjective Symptoms: improved, tolerating diet, voiding well, passing flatus, pain decreased Objective Last 24 Hour Vital Signs Date Time Temp Pulse Resp B/P (MAP) Pulse Ox O2 Delivery O2 Flow Rate FiO2 01/12/20 08:08 Room Air 01/12/20 08:00 97.0 75 18 114/81 (92) 98 01/12/20 04:00 98.0 58 18 118/67 (84) 96 01/12/20 00:00 97.9 59 20 121/56 (77) 98 01/11/20 21:00 Room Air 01/11/20 20:00 97.5 62 20 131/76 (94) 98 01/11/20 16:00 97.5 67 16 105/65 (78) 98 I&O Intake and Output 01/11/20 01/12/20 19:00 07:00 Intake Total 1000 ml 150 ml Balance 1000 ml 150 ml Intake Oral 400 ml IV Total 600 ml 150 ml # Voids 3 2 Cardiovascular: RSR Respiratory: clear Abdomen: soft, non-tender, present bowel sounds, non-distended Extremities: no edema, no tenderness, no cyanosis Laboratory Tests Test 01/12/20 06:50 White Blood Count 5.3 K/UL (4.8-10.8) Red Blood Count 4.49 M/UL (4.20-5.40) Hemoglobin 13.9 G/DL (12.0-16.0) Hematocrit 39.2 % (37.0-47.0) Mean Corpuscular Volume 87 FL (80-99) Mean Corpuscular Hemoglobin 31.0 PG (27.0-31.0) Mean Corpuscular Hemoglobin Concent 35.5 G/DL (32.0-36.0) Red Cell Distribution Width 11.2 % (11.6-14.8) L Platelet Count 247 K/UL (150-450) Mean Platelet Volume 6.8 FL (6.5-10.1) Neutrophils (%) (Auto) 49.0 % (45.0-75.0) Lymphocytes (%) (Auto) 41.2 % (20.0-45.0) Monocytes (%) (Auto) 6.4 % (1.0-10.0) Eosinophils (%) (Auto) 2.4 % (0.0-3.0) Basophils (%) (Auto) 0.9 % (0.0-2.0) Sodium Level 142 MMOL/L (136-145) Potassium Level 3.7 MMOL/L (3.5-5.1) Chloride Level 106 MMOL/L (98-107) Carbon Dioxide Level 30 MMOL/L (21-32) Anion Gap 6 mmol/L (5-15) Blood Urea Nitrogen 5 mg/dL (7-18) L Creatinine 0.8 MG/DL (0.55-1.30) Estimat Glomerular Filtration Rate > 60 mL/min (>60) Glucose Level 110 MG/DL (74-106) H Calcium Level 9.0 MG/DL (8.5-10.1) Magnesium Level 2.1 MG/DL (1.8-2.4) Total Bilirubin 0.7 MG/DL (0.2-1.0) Aspartate Amino Transf (AST/SGOT) 134 U/L (15-37) H Alanine Aminotransferase (ALT/SGPT) 418 U/L (12-78) H Alkaline Phosphatase 232 U/L (46-116) H Total Protein 6.7 G/DL (6.4-8.2) Albumin 3.3 G/DL (3.4-5.0) L Globulin 3.4 g/dL Albumin/Globulin Ratio 1.0 (1.0-2.7) Plan Problems: (1) Choledocholithiasis Assessment & Plan: Gallbladder contains multiple gallstones, also reported on prior sonogram. There is questionably a small amount of pericholecystic fluid and gallbladder wall edema, best appreciated on the coronal MRCP and T2. The common bile duct is ectatic, measuring up to 10 mm in diameter, but there is no evidence of downstream obstructive lesion or choledocholithiasis. The intrahepatic ducts are unremarkable. The pancreatic duct is not well-demonstrated. The liver demonstrates a tiny cyst in segment 2. The pancreas, spleen, adrenals are unremarkable. There are bilateral renal cysts noted. The included pelvic viscera on the coronal images are unremarkable. Impression: Cholelithiasis Equivocal mild gallbladder wall thickening and edema raises possibility of acute cholecystitis. Consider hepatobiliary nuclear scan if there is high clinical suspicion. Mildly ectatic extrahepatic bile ducts, without evidence of choledocholithiasis or other downstream obstructive lesion possible passed stone. (2) Transaminitis (3) Nausea (4) Postprandial abdominal pain in right upper quadrant (5) Intractable abdominal pain (6) Cholelithiasis Assessment & Plan: 49F biliary colic afebrile HD stable labs improved MRI and US noted currently pain resolved no n/v/f/c okay for trial diet outpatient f/u with pcp for surgery referral and consideration of elective cholecystectomy thank you Eliel Cabral Jan 12, 2020 12:21
[2020-01-12 16:00] VITALS: BP 119/76
--- NOTE | 2020-01-12 18:14 | Internal Med Progress Note ---
Subjective Date of Service: Jan 12, 2020 Physician Name PatriciaOrestes Attending Physician Zan Acosta MD Current Medications Medications (Trade) Dose Ordered Sig/Isabela Route PRN Reason Start Time Stop Time Status Last Admin Dose Admin Acetaminophen (Tylenol) 650 mg Q4H PRN ORAL fever (T>100.5F) 01/10/20 13:00 02/09/20 12:59 Acetaminophen/ Codeine Phosphate (Tylenol #3) 1 tab Q6H PRN ORAL For Pain 01/12/20 07:15 01/19/20 07:14 01/12/20 08:28 Dextrose (Dextrose 50%) 25 ml Q30M PRN IV Hypoglycemia 01/10/20 13:00 04/09/20 12:59 Dextrose (Dextrose 50%) 50 ml Q30M PRN IV Hypoglycemia 01/10/20 13:00 04/09/20 12:59 Dextrose/Sodium Chloride 1,000 ml @ 75 mls/hr [id number] IV 01/10/20 13:45 02/09/20 13:44 01/12/20 05:39 Diphenhydramine HCl (Benadryl) 25 mg Q6H PRN ORAL Itching/Pruritis 01/10/20 13:00 02/09/20 12:59 Heparin Sodium (Porcine) (Heparin 5000 units/ml) 5,000 units EVERY 12 HOURS SUBQ 01/10/20 21:00 02/24/20 20:59 01/12/20 08:31 Nitroglycerin (Ntg) 0.4 mg Q5M X 3 DOSES PRN SL Prn Chest Pain 01/10/20 13:00 02/09/20 12:59 Ondansetron HCl (Zofran) 4 mg Q6H PRN IVP Nausea & Vomiting 01/10/20 13:00 02/09/20 12:59 01/12/20 14:47 Pantoprazole (Protonix) 40 mg DAILY IVP 01/11/20 09:00 02/10/20 08:59 01/12/20 08:27 Polyethylene Glycol (Miralax) 17 gm HSPRN PRN ORAL Constipation 01/10/20 13:00 02/09/20 12:59 Temazepam (Restoril) 15 mg HSPRN PRN ORAL Insomnia 01/10/20 13:00 01/17/20 12:59 Allergies: Coded Allergies: Shrimp (Verified Allergy, Unknown, 01/10/20) ROS Limited/Unobtainable: No Constitutional: Reports: no symptoms HEENT: Reports: no symptoms Cardiovascular: Reports: no symptoms Respiratory: Reports: no symptoms Gastrointestinal/Abdominal: Reports: abdominal pain Genitourinary: Reports: no symptoms Neurologic/Psychiatric: Reports: no symptoms Subjective 49 YO F admitted with abdominal pain. Now cholelithiasis and elevated liver function tests. Cover for Int Teja - Dr Acosta Objective Last Vital Signs Date Time Temp Pulse Resp B/P (MAP) Pulse Ox O2 Delivery O2 Flow Rate FiO2 01/12/20 16:00 97.4 83 18 119/76 (90) 99 01/12/20 08:08 Room Air 01/10/20 12:40 96 Laboratory Tests Test 01/12/20 06:50 White Blood Count 5.3 K/UL (4.8-10.8) Red Blood Count 4.49 M/UL (4.20-5.40) Hemoglobin 13.9 G/DL (12.0-16.0) Hematocrit 39.2 % (37.0-47.0) Mean Corpuscular Volume 87 FL (80-99) Mean Corpuscular Hemoglobin 31.0 PG (27.0-31.0) Mean Corpuscular Hemoglobin Concent 35.5 G/DL (32.0-36.0) Red Cell Distribution Width 11.2 % (11.6-14.8) L Platelet Count 247 K/UL (150-450) Mean Platelet Volume 6.8 FL (6.5-10.1) Neutrophils (%) (Auto) 49.0 % (45.0-75.0) Lymphocytes (%) (Auto) 41.2 % (20.0-45.0) Monocytes (%) (Auto) 6.4 % (1.0-10.0) Eosinophils (%) (Auto) 2.4 % (0.0-3.0) Basophils (%) (Auto) 0.9 % (0.0-2.0) Sodium Level 142 MMOL/L (136-145) Potassium Level 3.7 MMOL/L (3.5-5.1) Chloride Level 106 MMOL/L (98-107) Carbon Dioxide Level 30 MMOL/L (21-32) Anion Gap 6 mmol/L (5-15) Blood Urea Nitrogen 5 mg/dL (7-18) L Creatinine 0.8 MG/DL (0.55-1.30) Estimat Glomerular Filtration Rate > 60 mL/min (>60) Glucose Level 110 MG/DL (74-106) H Calcium Level 9.0 MG/DL (8.5-10.1) Magnesium Level 2.1 MG/DL (1.8-2.4) Total Bilirubin 0.7 MG/DL (0.2-1.0) Aspartate Amino Transf (AST/SGOT) 134 U/L (15-37) H Alanine Aminotransferase (ALT/SGPT) 418 U/L (12-78) H Alkaline Phosphatase 232 U/L (46-116) H Total Protein 6.7 G/DL (6.4-8.2) Albumin 3.3 G/DL (3.4-5.0) L Globulin 3.4 g/dL Albumin/Globulin Ratio 1.0 (1.0-2.7) Microbiology Date/Time Source Procedure Growth Status 01/10/20 12:15 Blood Blood Culture - Preliminary NO GROWTH AFTER 24 HOURS Resulted 01/10/20 12:15 Blood Blood Culture - Preliminary NO GROWTH AFTER 24 HOURS Resulted 01/10/20 11:38 Nasopharynx SARS-CoV-2 RdRp Gene Assay - Final Complete Intake and Output 01/11/20 01/12/20 19:00 07:00 Intake Total 1000 ml 150 ml Balance 1000 ml 150 ml Intake Oral 400 ml IV Total 600 ml 150 ml # Voids 3 2 Objective PHYSICAL EXAMINATION: GENERAL: The patient is a well-developed, well-nourished female, in no apparent distress. HEENT: Eyes, pupils equal and responsive to light and accommodation. Extraocular movements are intact. NECK: Supple. No lymphadenopathy. CHEST: Lungs are clear to auscultation bilaterally without wheezes or rales. CARDIOVASCULAR: Regular rhythm and rate. S1, S2 are normal without murmurs, rubs, or gallops. ABDOMEN: Soft, nondistended with decreased bowel sounds. There is tenderness to palpation over the epigastric region and right upper quadrant. There is no rebound or guarding noted. EXTREMITIES: Negative for clubbing, cyanosis, or edema. RECTAL: Not performed. GENITAL: Not performed. NEUROLOGICAL: Cranial nerves II through XII are grossly intact without focal deficits. Motor strength is 5/5 bilaterally intact. Deep tendon reflexes are 2+, plantar. Assessment/Plan Assessment/Plan ASSESSMENT: This is a 49-year-old female with: 1. Right upper quadrant abdominal pain. 2. Cholelithiasis. 3. Elevated liver function tests. TREATMENT: 1. Cholelithiasis/elevated liver function tests. Gastroenterology consultation = Dr. Roe Ortega. General Surgery consultation = Dr. Cabral. 2. Await ERCP 3. OP elective cholecystectomy Orestes Gomez MD Jan 12, 2020 18:14
--- NOTE | 2020-01-12 19:43 | NUR ---
HAND-OFF: Report given to KRISTEN Helms, Pt is stable condition.
--- NOTE | 2020-01-12 19:45 | NUR ---
NURSE NOTES: Patient alert, awake, and oriented x 4. Speaks primarily Mongolian. Understands and speaks basic Yakut. Breathing unlabored on room air without distress. Denies pain or discomfort. IV noted on left antecubital intact and patent. Bed placed at the lowest with brake and siderails up for patient safety. Call light placed within reach. Will continue to monitor and provide care as ordered.
[2020-01-12 20:00] VITALS: BP 129/77
--- NOTE | 2020-01-12 20:05 | General Progress Note ---
Subjective Allergies: Coded Allergies: Shrimp (Verified Allergy, Unknown, 01/10/20) Subjective above noted tolerating po some pain after PO no BM x 3 d Objective Last 24 Hour Vital Signs Date Time Temp Pulse Resp B/P (MAP) Pulse Ox O2 Delivery O2 Flow Rate FiO2 01/12/20 16:00 97.4 83 18 119/76 (90) 99 01/12/20 12:00 97.3 65 18 142/58 (86) 99 01/12/20 08:08 Room Air 01/12/20 08:00 97.0 75 18 114/81 (92) 98 01/12/20 04:00 98.0 58 18 118/67 (84) 96 01/12/20 00:00 97.9 59 20 121/56 (77) 98 01/11/20 21:00 Room Air Intake and Output 01/11/20 01/12/20 19:00 07:00 Intake Total 1000 ml 150 ml Balance 1000 ml 150 ml Intake Oral 400 ml IV Total 600 ml 150 ml # Voids 3 2 Laboratory Tests 01/12/20 06:50: White Blood Count 5.3, Red Blood Count 4.49, Hemoglobin 13.9, Hematocrit 39.2, Mean Corpuscular Volume 87, Mean Corpuscular Hemoglobin 31.0, Mean Corpuscular Hemoglobin Concent 35.5, Red Cell Distribution Width 11.2L, Platelet Count 247, Mean Platelet Volume 6.8, Neutrophils (%) (Auto) 49.0, Lymphocytes (%) (Auto) 41.2, Monocytes (%) (Auto) 6.4, Eosinophils (%) (Auto) 2.4, Basophils (%) (Auto) 0.9, Sodium Level 142, Potassium Level 3.7, Chloride Level 106, Carbon Dioxide Level 30, Anion Gap 6, Blood Urea Nitrogen 5L, Creatinine 0.8, Estimat Glomerular Filtration Rate > 60, Glucose Level 110H, Calcium Level 9.0, Magnesium Level 2.1, Total Bilirubin 0.7, Aspartate Amino Transf (AST/SGOT) 134H , Alanine Aminotransferase (ALT/SGPT) 418H, Alkaline Phosphatase 232H, Total Protein 6.7, Albumin 3.3L, Globulin 3.4, Albumin/Globulin Ratio 1.0 Height (Feet): 5 Height (Inches): 1.00 Weight (Pounds): 143 Objective WDWN NCAT supple CTA RR abd soft no edema Assessment/Plan Assessment/Plan: Assessment/Plan Problem List: (1) Cholelithiasis ICD Codes: K80.20 - Calculus of gallbladder without cholecystitis without obstruction SNOMED: 071364875, 948412159 (2) Nausea ICD Codes: R11.0 - Nausea SNOMED: 505667944 (3) Transaminitis ICD Codes: R74.01 - Elevation of levels of liver transaminase levels SNOMED: 443613587, 126371817 (4) Intractable abdominal pain ICD Codes: R10.9 - Unspecified abdominal pain SNOMED: 51803531 Assessment/Plan: MRCP reviewed continue po diet and observation laxative repeat labs in am surgical f/u Twin Martines MD Jan 12, 2020 20:05
[2020-01-12] MEDS ORDERED: Sorbitol Solution UD 30ml ORAL SCH (20:15)
--- NOTE | 2020-01-12 23:50 | NUR ---
NURSE NOTES: After one time sorbitol, patient had a bowel movement x 1.
[2020-01-13] VITALS: BP 123/72
[2020-01-13] MEDS: D5 1/2NS 1,000 ML IV SCH ×2 (03:12→18:40)
[2020-01-13 04:00] VITALS: BP 124/72
[2020-01-13 07:16] LABS: BASOPHILS % (AUTO) 0.8 % (0.0-2.0); EOSINOPHILS % (AUTO) 2.8 % (0.0-3.0); HEMATOCRIT 35.6 % (37.0-47.0); HEMOGLOBIN 12.7 G/DL (12.0-16.0); LYMPHOCYTES % (AUTO) 46.6 % (20.0-45.0); MEAN CORPUSCULAR VOLUME 87 FL (80-99); MONOCYTES % (AUTO) 7.7 % (1.0-10.0); NEUTROPHILS % (AUTO) 42.2 % (45.0-75.0); PLATELET COUNT 244 K/UL (150-450); RED BLOOD COUNT 4.08 M/UL (4.20-5.40); RED CELL DISTRIBUTION WIDTH 11.1 % (11.6-14.8); WHITE BLOOD COUNT 6.5 K/UL (4.8-10.8)
[2020-01-13 07:39] LABS: ALANINE AMINOTRANSFERASE 321 U/L (12-78); ALBUMIN 3.3 G/DL (3.4-5.0); ALBUMIN/GLOBULIN RATIO 0.9 (1.0-2.7); ALKALINE PHOSPHATASE 200 U/L (46-116); ANION GAP 7 mmol/L (5-15); ASPARTATE AMINO TRANSFERASE 83 U/L (15-37); BILIRUBIN,TOTAL 0.5 MG/DL (0.2-1.0); BLOOD UREA NITROGEN 7 mg/dL (7-18); CALCIUM 8.2 MG/DL (8.5-10.1); CARBON DIOXIDE 29 MMOL/L (21-32); CHLORIDE 106 MMOL/L (98-107); CREATININE 0.8 MG/DL (0.55-1.30); POTASSIUM 3.6 MMOL/L (3.5-5.1); SODIUM 142 MMOL/L (136-145)
--- NOTE | 2020-01-13 07:44 | NUR ---
NURSE HAND-OFF: Important Events on Shift: No adverse event Patient Status:Stable Diet:Regular Diet Pending Orders:None Pending Results/Labs:None Pending MD notification:None Latest Vital Signs: Temperature 97.2 , Pulse 60 , B/P 124 /72 , Respiratory Rate 16 , O2 SAT 98 , Room Air, O2 Flow Rate . Vital Sign Comment:Stable Latest Herron Fall Score: 20 Fall Risk: Low Risk Safety Measures: Call light Within Reach, Bed Alarm Zone 1, Side Rails Side Rails x1, Bed position Low and Locked. Fall Precautions: Yellow Socks Yellow Gown Door Sign Patient Fall Education Report given to KRISTEN Lambert.
[2020-01-13 08:00] VITALS: BP 149/73
--- NOTE | 2020-01-13 08:00 | NUR ---
NURSE NOTES: Received patient in bed, alert, awake, and oriented x 4, in NAD. Denies pain or discomfort. Speaks primarily Ukrainian, but understands and speaks basic Ukrainian. This nurse speaks Ukrainian. Breathing unlabored on room air without distress. IV on the left antecubital intact and patent. Bed placed at the lowest position possible, on bed alarm, call light within easy reach, side rails up x2. Will continue to monitor pt and follow up with the POC.
[2020-01-13] MEDS: Pantoprazole Inj IVP SCH (08:27)
[2020-01-13] MEDS: Heparin 5000 units/ml inj SUBQ SCH ×2 (08:31→20:05)
[2020-01-13 12:00] VITALS: BP 134/84
[2020-01-13 16:00] VITALS: BP 132/64
--- NOTE | 2020-01-13 16:59 | Internal Med Progress Note ---
Subjective Date of Service: Jan 13, 2020 Physician Name PatriciaOrestes Attending Physician Zan Acosta MD Current Medications Medications (Trade) Dose Ordered Sig/Isabela Route PRN Reason Start Time Stop Time Status Last Admin Dose Admin Acetaminophen (Tylenol) 650 mg Q4H PRN ORAL fever (T>100.5F) 01/10/20 13:00 02/09/20 12:59 Acetaminophen/ Codeine Phosphate (Tylenol #3) 1 tab Q6H PRN ORAL For Pain 01/12/20 07:15 01/19/20 07:14 01/12/20 21:24 Dextrose (Dextrose 50%) 25 ml Q30M PRN IV Hypoglycemia 01/10/20 13:00 04/09/20 12:59 Dextrose (Dextrose 50%) 50 ml Q30M PRN IV Hypoglycemia 01/10/20 13:00 04/09/20 12:59 Dextrose/Sodium Chloride 1,000 ml @ 75 mls/hr [id number] IV 01/10/20 13:45 02/09/20 13:44 01/13/20 03:12 Diphenhydramine HCl (Benadryl) 25 mg Q6H PRN ORAL Itching/Pruritis 01/10/20 13:00 02/09/20 12:59 Heparin Sodium (Porcine) (Heparin 5000 units/ml) 5,000 units EVERY 12 HOURS SUBQ 01/10/20 21:00 02/24/20 20:59 01/13/20 08:31 Nitroglycerin (Ntg) 0.4 mg Q5M X 3 DOSES PRN SL Prn Chest Pain 01/10/20 13:00 02/09/20 12:59 Ondansetron HCl (Zofran) 4 mg Q6H PRN IVP Nausea & Vomiting 01/10/20 13:00 02/09/20 12:59 01/12/20 14:47 Pantoprazole (Protonix) 40 mg DAILY IVP 01/11/20 09:00 02/10/20 08:59 01/13/20 08:27 Polyethylene Glycol (Miralax) 17 gm HSPRN PRN ORAL Constipation 01/10/20 13:00 02/09/20 12:59 Temazepam (Restoril) 15 mg HSPRN PRN ORAL Insomnia 01/10/20 13:00 01/17/20 12:59 Allergies: Coded Allergies: Shrimp (Verified Allergy, Unknown, 01/10/20) ROS Limited/Unobtainable: No Constitutional: Reports: no symptoms HEENT: Reports: no symptoms Cardiovascular: Reports: no symptoms Respiratory: Reports: no symptoms Gastrointestinal/Abdominal: Reports: abdominal pain Genitourinary: Reports: no symptoms Neurologic/Psychiatric: Reports: no symptoms Subjective 49 YO F admitted with abdominal pain. Now cholelithiasis and elevated liver function tests. Cover for Int [facility] - Dr Acosta Objective Last Vital Signs Date Time Temp Pulse Resp B/P (MAP) Pulse Ox O2 Delivery O2 Flow Rate FiO2 01/13/20 12:00 97.9 71 17 134/84 (101) 98 01/13/20 09:00 Room Air 01/10/20 12:40 96 Laboratory Tests Test 01/13/20 05:28 White Blood Count 6.5 K/UL (4.8-10.8) Red Blood Count 4.08 M/UL (4.20-5.40) L Hemoglobin 12.7 G/DL (12.0-16.0) Hematocrit 35.6 % (37.0-47.0) L Mean Corpuscular Volume 87 FL (80-99) Mean Corpuscular Hemoglobin 31.0 PG (27.0-31.0) Mean Corpuscular Hemoglobin Concent 35.6 G/DL (32.0-36.0) Red Cell Distribution Width 11.1 % (11.6-14.8) L Platelet Count 244 K/UL (150-450) Mean Platelet Volume 6.8 FL (6.5-10.1) Neutrophils (%) (Auto) 42.2 % (45.0-75.0) L Lymphocytes (%) (Auto) 46.6 % (20.0-45.0) H Monocytes (%) (Auto) 7.7 % (1.0-10.0) Eosinophils (%) (Auto) 2.8 % (0.0-3.0) Basophils (%) (Auto) 0.8 % (0.0-2.0) Erythrocyte Sedimentation Rate 32 MM/HR (0-20) H Sodium Level 142 MMOL/L (136-145) Potassium Level 3.6 MMOL/L (3.5-5.1) Chloride Level 106 MMOL/L (98-107) Carbon Dioxide Level 29 MMOL/L (21-32) Anion Gap 7 mmol/L (5-15) Blood Urea Nitrogen 7 mg/dL (7-18) Creatinine 0.8 MG/DL (0.55-1.30) Estimat Glomerular Filtration Rate > 60 mL/min (>60) Glucose Level 96 MG/DL (74-106) Calcium Level 8.2 MG/DL (8.5-10.1) L Total Bilirubin 0.5 MG/DL (0.2-1.0) Aspartate Amino Transf (AST/SGOT) 83 U/L (15-37) H Alanine Aminotransferase (ALT/SGPT) 321 U/L (12-78) H Alkaline Phosphatase 200 U/L (46-116) H C-Reactive Protein, Quantitative < 0.4 mg/dL (0.00-0.90) Total Protein 7.0 G/DL (6.4-8.2) Albumin 3.3 G/DL (3.4-5.0) L Globulin 3.7 g/dL Albumin/Globulin Ratio 0.9 (1.0-2.7) L Intake and Output 01/12/20 01/13/20 19:00 07:00 Intake Total 1000 ml 825 ml Balance 1000 ml 825 ml IV Total 825 ml Other 1000 ml # Voids 3 # Bowel Movements 1 Objective PHYSICAL EXAMINATION: GENERAL: The patient is a well-developed, well-nourished female, in no apparent distress. HEENT: Eyes, pupils equal and responsive to light and accommodation. Extraocular movements are intact. NECK: Supple. No lymphadenopathy. CHEST: Lungs are clear to auscultation bilaterally without wheezes or rales. CARDIOVASCULAR: Regular rhythm and rate. S1, S2 are normal without murmurs, rubs, or gallops. ABDOMEN: Soft, nondistended with decreased bowel sounds. There is tenderness to palpation over the epigastric region and right upper quadrant. There is no rebound or guarding noted. EXTREMITIES: Negative for clubbing, cyanosis, or edema. RECTAL: Not performed. GENITAL: Not performed. NEUROLOGICAL: Cranial nerves II through XII are grossly intact without focal deficits. Motor strength is 5/5 bilaterally intact. Deep tendon reflexes are 2+, plantar. Assessment/Plan Assessment/Plan ASSESSMENT: This is a 49-year-old female with: 1. Right upper quadrant abdominal pain. 2. Cholelithiasis. 3. Elevated liver function tests. TREATMENT: 1. Cholelithiasis/elevated liver function tests. Gastroenterology consultation = Dr. Roe Ortega. General Surgery consultation = Dr. Cabral. 2. Await ERCP 3. OP elective cholecystectomy Orestes Gomez MD Jan 13, 2020 16:59
--- NOTE | 2020-01-13 17:54 | Surgery Progress Note ---
Surgery Progress Note Subjective Symptoms: improved, tolerating diet, voiding well, passing flatus, BM, pain decreased Objective Last 24 Hour Vital Signs Date Time Temp Pulse Resp B/P (MAP) Pulse Ox O2 Delivery O2 Flow Rate FiO2 01/13/20 16:00 98.1 74 17 132/64 (86) 98 01/13/20 12:00 97.9 71 17 134/84 (101) 98 01/13/20 09:00 Room Air 01/13/20 08:00 98.0 80 17 149/73 (98) 97 01/13/20 04:00 97.2 60 16 124/72 (89) 98 01/13/20 00:00 97.0 58 16 123/72 (89) 98 01/12/20 21:00 Room Air 01/12/20 20:00 97.7 65 14 129/77 (94) 98 I&O Intake and Output 01/12/20 01/13/20 19:00 07:00 Intake Total 1000 ml 825 ml Balance 1000 ml 825 ml IV Total 825 ml Other 1000 ml # Voids 3 # Bowel Movements 1 Cardiovascular: RSR Respiratory: clear Abdomen: soft, flat, non-tender, present bowel sounds Extremities: no edema, no tenderness, no cyanosis Laboratory Tests Test 01/13/20 05:28 White Blood Count 6.5 K/UL (4.8-10.8) Red Blood Count 4.08 M/UL (4.20-5.40) L Hemoglobin 12.7 G/DL (12.0-16.0) Hematocrit 35.6 % (37.0-47.0) L Mean Corpuscular Volume 87 FL (80-99) Mean Corpuscular Hemoglobin 31.0 PG (27.0-31.0) Mean Corpuscular Hemoglobin Concent 35.6 G/DL (32.0-36.0) Red Cell Distribution Width 11.1 % (11.6-14.8) L Platelet Count 244 K/UL (150-450) Mean Platelet Volume 6.8 FL (6.5-10.1) Neutrophils (%) (Auto) 42.2 % (45.0-75.0) L Lymphocytes (%) (Auto) 46.6 % (20.0-45.0) H Monocytes (%) (Auto) 7.7 % (1.0-10.0) Eosinophils (%) (Auto) 2.8 % (0.0-3.0) Basophils (%) (Auto) 0.8 % (0.0-2.0) Erythrocyte Sedimentation Rate 32 MM/HR (0-20) H Sodium Level 142 MMOL/L (136-145) Potassium Level 3.6 MMOL/L (3.5-5.1) Chloride Level 106 MMOL/L (98-107) Carbon Dioxide Level 29 MMOL/L (21-32) Anion Gap 7 mmol/L (5-15) Blood Urea Nitrogen 7 mg/dL (7-18) Creatinine 0.8 MG/DL (0.55-1.30) Estimat Glomerular Filtration Rate > 60 mL/min (>60) Glucose Level 96 MG/DL (74-106) Calcium Level 8.2 MG/DL (8.5-10.1) L Total Bilirubin 0.5 MG/DL (0.2-1.0) Aspartate Amino Transf (AST/SGOT) 83 U/L (15-37) H Alanine Aminotransferase (ALT/SGPT) 321 U/L (12-78) H Alkaline Phosphatase 200 U/L (46-116) H C-Reactive Protein, Quantitative < 0.4 mg/dL (0.00-0.90) Total Protein 7.0 G/DL (6.4-8.2) Albumin 3.3 G/DL (3.4-5.0) L Globulin 3.7 g/dL Albumin/Globulin Ratio 0.9 (1.0-2.7) L Plan Problems: (1) Choledocholithiasis Assessment & Plan: Gallbladder contains multiple gallstones, also reported on prior sonogram. There is questionably a small amount of pericholecystic fluid and gallbladder wall edema, best appreciated on the coronal MRCP and T2. The common bile duct is ectatic, measuring up to 10 mm in diameter, but there is no evidence of downstream obstructive lesion or choledocholithiasis. The intrahepatic ducts are unremarkable. The pancreatic duct is not well-demonstrated. The liver demonstrates a tiny cyst in segment 2. The pancreas, spleen, adrenals are unremarkable. There are bilateral renal cysts noted. The included pelvic viscera on the coronal images are unremarkable. Impression: Cholelithiasis Equivocal mild gallbladder wall thickening and edema raises possibility of acute cholecystitis. Consider hepatobiliary nuclear scan if there is high clinical suspicion. Mildly ectatic extrahepatic bile ducts, without evidence of choledocholithiasis or other downstream obstructive lesion possible passed stone. (2) Transaminitis (3) Nausea (4) Postprandial abdominal pain in right upper quadrant (5) Intractable abdominal pain (6) Cholelithiasis Assessment & Plan: 49F biliary colic afebrile HD stable labs improved MRI and US noted currently pain resolved no n/v/f/c okay for trial diet outpatient f/u with pcp for surgery referral and consideration of elective cholecystectomy thank you Eliel Cabral Jan 13, 2020 17:54
--- NOTE | 2020-01-13 19:07 | NUR ---
NURSE HAND-OFF: Important Events on Shift:[nausea x1] Patient Status: [stable] Diet: [regular] Pending Orders: [cbc, bmp] Pending Results/Labs:[] Pending MD notification:[] Latest Vital Signs: Temperature 98.1 , Pulse 74 , B/P 132 /64 , Respiratory Rate 17 , O2 SAT 98 , Room Air, O2 Flow Rate . Vital Sign Comment: [] Latest Herron Fall Score: 20 Fall Risk: Low Risk Safety Measures: Call light Within Reach, Bed Alarm Zone 1, Side Rails Side Rails x1, Bed position Low and Locked. Fall Precautions: Yellow Socks Yellow Gown Door Sign Patient Fall Education Report given to [KRISTEN Gill].
--- NOTE | 2020-01-13 19:15 | NUR ---
NURSE NOTES: Patient in bed, awake and alert x4. On room air with no signs of distress or SOB. IV intact and patent. Bed locked and in lowest position. Call light within easy reach. Will continue plan of care.
--- NOTE | 2020-01-13 19:53 | General Progress Note ---
Subjective Allergies: Coded Allergies: Shrimp (Verified Allergy, Unknown, 01/10/20) Subjective above noted tolerating po (+) BM Objective Last 24 Hour Vital Signs Date Time Temp Pulse Resp B/P (MAP) Pulse Ox O2 Delivery O2 Flow Rate FiO2 01/13/20 16:00 98.1 74 17 132/64 (86) 98 01/13/20 12:00 97.9 71 17 134/84 (101) 98 01/13/20 09:00 Room Air 01/13/20 08:00 98.0 80 17 149/73 (98) 97 01/13/20 04:00 97.2 60 16 124/72 (89) 98 01/13/20 00:00 97.0 58 16 123/72 (89) 98 01/12/20 21:00 Room Air 01/12/20 20:00 97.7 65 14 129/77 (94) 98 Intake and Output 01/12/20 01/13/20 19:00 07:00 Intake Total 1000 ml 900 ml Balance 1000 ml 900 ml IV Total 900 ml Other 1000 ml # Voids 3 # Bowel Movements 1 Laboratory Tests 01/13/20 05:28: White Blood Count 6.5, Red Blood Count 4.08L, Hemoglobin 12.7, Hematocrit 35.6L, Mean Corpuscular Volume 87, Mean Corpuscular Hemoglobin 31.0, Mean Corpuscular Hemoglobin Concent 35.6, Red Cell Distribution Width 11.1L, Platelet Count 244, Mean Platelet Volume 6.8, Neutrophils (%) (Auto) 42.2L, Lymphocytes (%) (Auto) 46.6H, Monocytes (%) (Auto) 7.7, Eosinophils (%) (Auto) 2.8, Basophils (%) (Auto) 0.8, Erythrocyte Sedimentation Rate 32H, Sodium Level 142, Potassium Level 3.6, Chloride Level 106, Carbon Dioxide Level 29, Anion Gap 7, Blood Urea Nitrogen 7, Creatinine 0.8, Estimat Glomerular Filtration Rate > 60, Glucose Level 96, Calcium Level 8.2L, Total Bilirubin 0.5, Aspartate Amino Transf (AST/SGOT) 83H, Alanine Aminotransferase (ALT/SGPT) 321H, Alkaline Phosphatase 200H, C-Reactive Protein, Quantitative < 0.4, Total Protein 7.0, Albumin 3.3L, Globulin 3.7, Albumin/Globulin Ratio 0.9L Height (Feet): 5 Height (Inches): 1.00 Weight (Pounds): 143 Objective WDWN NCAT supple CTA RR abd soft no edema Assessment/Plan Assessment/Plan: Assessment/Plan Problem List: (1) Cholelithiasis ICD Codes: K80.20 - Calculus of gallbladder without cholecystitis without obstruction SNOMED: 829367826, 840223938 (2) Nausea ICD Codes: R11.0 - Nausea SNOMED: 946418105 (3) Transaminitis ICD Codes: R74.01 - Elevation of levels of liver transaminase levels SNOMED: 259427244, 419851502 (4) Intractable abdominal pain ICD Codes: R10.9 - Unspecified abdominal pain SNOMED: 20179890 Assessment/Plan: MRCP reviewed continue po diet and observation laxative prn repeat labs in am surgical f/u Twin Martines MD Jan 13, 2020 19:53
[2020-01-13 20:00] VITALS: BP 130/75
[2020-01-14 04:00] VITALS: BP 122/69
--- NOTE | 2020-01-14 06:25 | NUR ---
NURSE HAND-OFF: Important Events on Shift: No events Patient Status: Stable, no C/O nausea or vomiting Diet: Reg Pending Orders: N/A Pending Results/Labs: CBC, BMP Pending MD notification: N/A Latest Vital Signs: Temperature 97.3 , Pulse 60 , B/P 122 /69 , Respiratory Rate 17 , O2 SAT 97 , Room Air, O2 Flow Rate . Vital Sign Comment: Latest Herron Fall Score: 20 Fall Risk: Low Risk Safety Measures: Call light Within Reach, Bed Alarm Zone 1, Side Rails Side Rails x1, Bed position Low and Locked. Fall Precautions: Yellow Socks Yellow Gown Door Sign Patient Fall Education
[2020-01-14] MEDS: D5 1/2NS 1,000 ML IV SCH (06:51)
[2020-01-14 07:33] LABS: BASOPHILS % (AUTO) 1.8 % (0.0-2.0); EOSINOPHILS % (AUTO) 2.3 % (0.0-3.0); HEMATOCRIT 39.2 % (37.0-47.0); HEMOGLOBIN 13.7 G/DL (12.0-16.0); LYMPHOCYTES % (AUTO) 44.3 % (20.0-45.0); MEAN CORPUSCULAR VOLUME 87 FL (80-99); MONOCYTES % (AUTO) 6.6 % (1.0-10.0); NEUTROPHILS % (AUTO) 45.1 % (45.0-75.0); PLATELET COUNT 260 K/UL (150-450); RED BLOOD COUNT 4.49 M/UL (4.20-5.40); RED CELL DISTRIBUTION WIDTH 11.3 % (11.6-14.8); WHITE BLOOD COUNT 7.2 K/UL (4.8-10.8)
--- NOTE | 2020-01-14 07:33 | NUR ---
NURSE NOTES: Received patient seated at the edge of the bed having breakfast. Patient is alert, awake, and oriented x 4, in NAD, in room air. Denies pain or discomfort. Speaks primarily Lithuanian, but understands and speaks basic Portuguese. This nurse speaks Lithuanian. IV on the left antecubital intact and patent. Bed at the lowest position possible, locked, call light within easy reach, side rails up x2. Will continue to monitor patient and follow up with the plan of care.
[2020-01-14 07:43] LABS: ANION GAP 10 mmol/L (5-15); BLOOD UREA NITROGEN 8 mg/dL (7-18); CALCIUM 8.7 MG/DL (8.5-10.1); CARBON DIOXIDE 26 MMOL/L (21-32); CHLORIDE 105 MMOL/L (98-107); CREATININE 0.9 MG/DL (0.55-1.30); POTASSIUM 3.9 MMOL/L (3.5-5.1); SODIUM 141 MMOL/L (136-145)
[2020-01-14 08:00] VITALS: BP 134/56
[2020-01-14] MEDS: Pantoprazole Inj IVP SCH (08:22)
[2020-01-14] MEDS: Heparin 5000 units/ml inj SUBQ SCH ×2 (08:24→21:00)
--- NOTE | 2020-01-14 10:01 | General Progress Note ---
Subjective ROS Limited/Unobtainable: Yes Allergies: Coded Allergies: Shrimp (Verified Allergy, Unknown, 01/10/20) Objective Last 24 Hour Vital Signs Date Time Temp Pulse Resp B/P (MAP) Pulse Ox O2 Delivery O2 Flow Rate FiO2 01/14/20 08:00 98.6 81 16 134/56 (82) 95 01/14/20 04:00 97.3 60 17 122/69 (86) 97 01/13/20 21:00 Room Air 01/13/20 20:00 97.2 64 18 130/75 (93) 97 01/13/20 16:00 98.1 74 17 132/64 (86) 98 01/13/20 12:00 97.9 71 17 134/84 (101) 98 Intake and Output 01/13/20 01/14/20 19:00 07:00 Intake Total 1900 ml 600 ml Balance 1900 ml 600 ml Intake Oral 600 ml IV Total 700 ml Other 1200 ml # Voids 2 Laboratory Tests 01/14/20 07:15: White Blood Count 7.2, Red Blood Count 4.49, Hemoglobin 13.7, Hematocrit 39.2, Mean Corpuscular Volume 87, Mean Corpuscular Hemoglobin 30.6, Mean Corpuscular Hemoglobin Concent 35.1, Red Cell Distribution Width 11.3L, Platelet Count 260, Mean Platelet Volume 6.7, Neutrophils (%) (Auto) 45.1, Lymphocytes (%) (Auto) 44.3, Monocytes (%) (Auto) 6.6, Eosinophils (%) (Auto) 2.3, Basophils (%) (Auto) 1.8, Sodium Level 141, Potassium Level 3.9, Chloride Level 105, Carbon Dioxide Level 26, Anion Gap 10, Blood Urea Nitrogen 8, Creatinine 0.9, Estimat Glomerular Filtration Rate > 60, Glucose Level 133H, Calcium Level 8.7 Height (Feet): 5 Height (Inches): 1.00 Weight (Pounds): 143 General Appearance: alert EENT: normal ENT inspection Neck: supple Cardiovascular: normal rate Respiratory/Chest: decreased breath sounds Abdomen: normal bowel sounds, non tender, soft Extremities: non-tender Assessment/Plan Problem List: (1) Cholelithiasis ICD Codes: K80.20 - Calculus of gallbladder without cholecystitis without obstruction SNOMED: 824233953, 601269059 (2) Nausea ICD Codes: R11.0 - Nausea SNOMED: 245370835 (3) Transaminitis ICD Codes: R74.01 - Elevation of levels of liver transaminase levels SNOMED: 366018519, 194125136 (4) Intractable abdominal pain ICD Codes: R10.9 - Unspecified abdominal pain SNOMED: 05700193 Assessment/Plan: us reviewed MRCP reviewed improving LFTS no need for ERCP for now fu surg recs repeat labs in am Roe Ortega MD Jan 14, 2020 10:01
[2020-01-14 12:00] VITALS: BP 132/70
--- NOTE | 2020-01-14 13:37 | Surgery Progress Note ---
Surgery Progress Note Subjective Additional Comments no acute events comfortable stable tolerating diet no n/v d/c planning Objective Last 24 Hour Vital Signs Date Time Temp Pulse Resp B/P (MAP) Pulse Ox O2 Delivery O2 Flow Rate FiO2 01/14/20 12:00 98.1 72 16 132/70 (90) 98 01/14/20 09:00 Room Air 01/14/20 08:00 98.6 81 16 134/56 (82) 95 01/14/20 04:00 97.3 60 17 122/69 (86) 97 01/13/20 21:00 Room Air 01/13/20 20:00 97.2 64 18 130/75 (93) 97 01/13/20 16:00 98.1 74 17 132/64 (86) 98 I&O Intake and Output 01/13/20 01/14/20 19:00 07:00 Intake Total 1900 ml 600 ml Balance 1900 ml 600 ml Intake Oral 600 ml IV Total 700 ml Other 1200 ml # Voids 2 Cardiovascular: RSR Abdomen: soft, non-tender, present bowel sounds, non-distended Extremities: no edema, no tenderness, no cyanosis Laboratory Tests Test 01/14/20 07:15 White Blood Count 7.2 K/UL (4.8-10.8) Red Blood Count 4.49 M/UL (4.20-5.40) Hemoglobin 13.7 G/DL (12.0-16.0) Hematocrit 39.2 % (37.0-47.0) Mean Corpuscular Volume 87 FL (80-99) Mean Corpuscular Hemoglobin 30.6 PG (27.0-31.0) Mean Corpuscular Hemoglobin Concent 35.1 G/DL (32.0-36.0) Red Cell Distribution Width 11.3 % (11.6-14.8) L Platelet Count 260 K/UL (150-450) Mean Platelet Volume 6.7 FL (6.5-10.1) Neutrophils (%) (Auto) 45.1 % (45.0-75.0) Lymphocytes (%) (Auto) 44.3 % (20.0-45.0) Monocytes (%) (Auto) 6.6 % (1.0-10.0) Eosinophils (%) (Auto) 2.3 % (0.0-3.0) Basophils (%) (Auto) 1.8 % (0.0-2.0) Sodium Level 141 MMOL/L (136-145) Potassium Level 3.9 MMOL/L (3.5-5.1) Chloride Level 105 MMOL/L (98-107) Carbon Dioxide Level 26 MMOL/L (21-32) Anion Gap 10 mmol/L (5-15) Blood Urea Nitrogen 8 mg/dL (7-18) Creatinine 0.9 MG/DL (0.55-1.30) Estimat Glomerular Filtration Rate > 60 mL/min (>60) Glucose Level 133 MG/DL (74-106) H Calcium Level 8.7 MG/DL (8.5-10.1) Plan Problems: (1) Choledocholithiasis Assessment & Plan: Gallbladder contains multiple gallstones, also reported on prior sonogram. There is questionably a small amount of pericholecystic fluid and gallbladder wall edema, best appreciated on the coronal MRCP and T2. The common bile duct is ectatic, measuring up to 10 mm in diameter, but there is no evidence of downstream obstructive lesion or choledocholithiasis. The intrahepatic ducts are unremarkable. The pancreatic duct is not well-demonstrated. The liver demonstrates a tiny cyst in segment 2. The pancreas, spleen, adrenals are unremarkable. There are bilateral renal cysts noted. The included pelvic viscera on the coronal images are unremarkable. Impression: Cholelithiasis Equivocal mild gallbladder wall thickening and edema raises possibility of acute cholecystitis. Consider hepatobiliary nuclear scan if there is high clinical suspicion. Mildly ectatic extrahepatic bile ducts, without evidence of choledocholithiasis or other downstream obstructive lesion possible passed stone. (2) Transaminitis (3) Nausea (4) Postprandial abdominal pain in right upper quadrant (5) Intractable abdominal pain (6) Cholelithiasis Assessment & Plan: 49F biliary colic afebrile HD stable labs improved MRI and US noted currently pain resolved no n/v/f/c okay for trial diet outpatient f/u with pcp for surgery referral and consideration of elective cholecystectomy thank you Eliel Cabral Jan 14, 2020 13:37
[2020-01-14] MEDS ORDERED: D5 1/2NS 1000ml IV ONE (15:46)
[2020-01-14 16:00] VITALS: BP 116/58
--- NOTE | 2020-01-14 17:15 | NUR ---
CASE MANAGEMENT:REVIEW SI;CHOLEDOCHOLITHIASIS. CHOLELITHIASIS. 98.6 81 18 134/56 95% ON RA IS;PROTONIX PO QD HEPARIN SUBQ Q12 IVF D5NS @ 75 ML/HR MED SURG STATUS DCP;FROM HOME
--- NOTE | 2020-01-14 19:25 | NUR ---
NURSE NOTES: Patient sitting on bed, alert and oriented x4, on room air, no complaints at this time. For discharge. Will follow up accordingly. Instructed to use call light for assistance. Bed in lowest and lock engaged.
--- NOTE | 2020-01-14 19:30 | NUR ---
NURSE HAND-OFF: Important Events on Shift:[in process of being discharged] Patient Status: [stable] Diet: [reg] Pending Orders: [] Pending Results/Labs:[] Pending MD notification:[] Latest Vital Signs: Temperature 97.7 , Pulse 69 , B/P 116 /58 , Respiratory Rate 18 , O2 SAT 98 , Room Air, O2 Flow Rate . Vital Sign Comment: [] Latest Herron Fall Score: 20 Fall Risk: Low Risk Safety Measures: Call light Within Reach, Bed Alarm Zone 1, Side Rails Side Rails x1, Bed position Low and Locked. Fall Precautions: Yellow Socks Yellow Gown Door Sign Patient Fall Education Report given to [KRISTEN Flowers].
--- NOTE | 2020-01-14 20:28 | Internal Med Progress Note ---
Subjective Date of Service: Jan 14, 2020 Physician Name PatriciaOrestes Attending Physician Zan Acosta MD Current Medications Medications (Trade) Dose Ordered Sig/Isabela Route PRN Reason Start Time Stop Time Status Last Admin Dose Admin Acetaminophen (Tylenol) 650 mg Q4H PRN ORAL fever (T>100.5F) 01/10/20 13:00 02/09/20 12:59 Acetaminophen/ Codeine Phosphate (Tylenol #3) 1 tab Q6H PRN ORAL For Pain 01/12/20 07:15 01/19/20 07:14 01/12/20 21:24 Dextrose (Dextrose 50%) 25 ml Q30M PRN IV Hypoglycemia 01/10/20 13:00 04/09/20 12:59 Dextrose (Dextrose 50%) 50 ml Q30M PRN IV Hypoglycemia 01/10/20 13:00 04/09/20 12:59 Dextrose/Sodium Chloride 1,000 ml @ 75 mls/hr [id number] IV 01/10/20 13:45 02/09/20 13:44 01/14/20 06:51 Diphenhydramine HCl (Benadryl) 25 mg Q6H PRN ORAL Itching/Pruritis 01/10/20 13:00 02/09/20 12:59 Heparin Sodium (Porcine) (Heparin 5000 units/ml) 5,000 units EVERY 12 HOURS SUBQ 01/10/20 21:00 02/24/20 20:59 01/14/20 08:24 Nitroglycerin (Ntg) 0.4 mg Q5M X 3 DOSES PRN SL Prn Chest Pain 01/10/20 13:00 02/09/20 12:59 Ondansetron HCl (Zofran) 4 mg Q6H PRN IVP Nausea & Vomiting 01/10/20 13:00 02/09/20 12:59 01/13/20 18:40 Pantoprazole (Protonix) 40 mg DAILY ORAL 01/15/20 09:00 02/14/20 08:59 Polyethylene Glycol (Miralax) 17 gm HSPRN PRN ORAL Constipation 01/10/20 13:00 02/09/20 12:59 Temazepam (Restoril) 15 mg HSPRN PRN ORAL Insomnia 01/10/20 13:00 01/17/20 12:59 Allergies: Coded Allergies: Shrimp (Verified Allergy, Unknown, 01/10/20) ROS Limited/Unobtainable: No Constitutional: Reports: no symptoms HEENT: Reports: no symptoms Cardiovascular: Reports: no symptoms Respiratory: Reports: no symptoms Gastrointestinal/Abdominal: Reports: abdominal pain Genitourinary: Reports: no symptoms Neurologic/Psychiatric: Reports: no symptoms Subjective 49 YO F admitted with abdominal pain. Now cholelithiasis and elevated liver function tests. Cover for Int Teja - Dr Acosta Objective Last Vital Signs Date Time Temp Pulse Resp B/P (MAP) Pulse Ox O2 Delivery O2 Flow Rate FiO2 01/14/20 16:00 97.7 69 18 116/58 (77) 98 01/14/20 09:00 Room Air 01/10/20 12:40 96 Laboratory Tests Test 01/14/20 07:15 White Blood Count 7.2 K/UL (4.8-10.8) Red Blood Count 4.49 M/UL (4.20-5.40) Hemoglobin 13.7 G/DL (12.0-16.0) Hematocrit 39.2 % (37.0-47.0) Mean Corpuscular Volume 87 FL (80-99) Mean Corpuscular Hemoglobin 30.6 PG (27.0-31.0) Mean Corpuscular Hemoglobin Concent 35.1 G/DL (32.0-36.0) Red Cell Distribution Width 11.3 % (11.6-14.8) L Platelet Count 260 K/UL (150-450) Mean Platelet Volume 6.7 FL (6.5-10.1) Neutrophils (%) (Auto) 45.1 % (45.0-75.0) Lymphocytes (%) (Auto) 44.3 % (20.0-45.0) Monocytes (%) (Auto) 6.6 % (1.0-10.0) Eosinophils (%) (Auto) 2.3 % (0.0-3.0) Basophils (%) (Auto) 1.8 % (0.0-2.0) Sodium Level 141 MMOL/L (136-145) Potassium Level 3.9 MMOL/L (3.5-5.1) Chloride Level 105 MMOL/L (98-107) Carbon Dioxide Level 26 MMOL/L (21-32) Anion Gap 10 mmol/L (5-15) Blood Urea Nitrogen 8 mg/dL (7-18) Creatinine 0.9 MG/DL (0.55-1.30) Estimat Glomerular Filtration Rate > 60 mL/min (>60) Glucose Level 133 MG/DL (74-106) H Calcium Level 8.7 MG/DL (8.5-10.1) Intake and Output 01/13/20 01/14/20 19:00 07:00 Intake Total 1900 ml 600 ml Balance 1900 ml 600 ml Intake Oral 600 ml IV Total 700 ml Other 1200 ml # Voids 2 Objective PHYSICAL EXAMINATION: GENERAL: The patient is a well-developed, well-nourished female, in no apparent distress. HEENT: Eyes, pupils equal and responsive to light and accommodation. Extraocular movements are intact. NECK: Supple. No lymphadenopathy. CHEST: Lungs are clear to auscultation bilaterally without wheezes or rales. CARDIOVASCULAR: Regular rhythm and rate. S1, S2 are normal without murmurs, rubs, or gallops. ABDOMEN: Soft, nondistended with decreased bowel sounds. There is tenderness to palpation over the epigastric region and right upper quadrant. There is no rebound or guarding noted. EXTREMITIES: Negative for clubbing, cyanosis, or edema. RECTAL: Not performed. GENITAL: Not performed. NEUROLOGICAL: Cranial nerves II through XII are grossly intact without focal deficits. Motor strength is 5/5 bilaterally intact. Deep tendon reflexes are 2+, plantar. Assessment/Plan Assessment/Plan ASSESSMENT: This is a 49-year-old female with: 1. Right upper quadrant abdominal pain. 2. Cholelithiasis. 3. Elevated liver function tests. TREATMENT: 1. Cholelithiasis/elevated liver function tests. Gastroenterology consultation = Dr. Roe Ortega. General Surgery consultation = Dr. Cabral. 2. ERCP cancelled per GI 3. OP elective cholecystectomy Orestes Gomez MD Jan 14, 2020 20:28
--- NOTE | 2020-01-14 21:28 | NUR ---
NURSE NOTES: IV access removed and ID band removed. Discharge instructions given and patient verbalized understanding. Patient taken all her belongings and picked up by family. Charge nurse made aware.
--- NOTE | 2020-01-16 07:24 | Discharge Summary ---
Discharge Summary Discharge Summary _ DATE OF ADMISSION: 01/10/2020 DATE OF DISCHARGE: 01/14/2020 DISCHARGED BY: Dr. Acosta REASON FOR ADMISSION: 49 years old female with no significant past medical history, presented to emergency department with epigastric pain, radiating to the right upper quadrant intermittently for the last 2 days. Pain was worse after eating. Patient denied dysuria, hematuria, flank pain, history of stones, difficulty voiding. No fever or chills. No chest pain or shortness of breath. No diarrhea. Rapid COVID-19 in emergency department was negative. Vital signs were stable. Laboratory work-up revealed no leukocytosis, stable hemoglobin and hematocrit. Significantly elevated LFT: AST 663, ALT 841, total bilirubin 1.7, direct bilirubin 1.2. Urinalysis revealed +1 bilirubin, +1 leukocyte esterase , +1 protein , but no evidence of urinary tract infection. Abdominal ultrasound demonstrated cholelithiasis. Mildly dilated common bile duct. Downstream obstruction was not completely excludable. In emergency department patient received analgesic ,empiric antibiotic ,antiemetic ,started on IV hydration Due to concern for choledocholithiasis, given labs and common bile duct dilatation, patient was admitted for further workup and management. CONSULTANTS: pulmonary/critical care Dr. Snell GI specialist Dr. Ortega surgery [facility] COURSE: Patient admitted to medical surgical floor. GI specialist, surgery and urban redevelopment specialist closely followed. Patient was kept n.p.o. Patient started on the IV hydration and empiric antibiotic. Supportive care provided. Pain management was addressed as needed. MRCP revealed equivocal mild gallbladder wall thickening and edema, raising possibility of acute cholecystitis. Mildly ectatic extrahepatic bile ducts without evidence of choledocholithiasis or other downstream obstructive lesion. LFT were closely monitored and trending down : prior to discharge AST 83 , ALT 321. Total bilirubin down to normal 0.5 MRCP was closely reviewed by GI specialist. No need for ERCP at this time. Patient remained afebrile and hemodynamically stable. Labs were improving. Pain resolved. According to surgeon, patient possibly passed stone. Patient started on trial of diet and advanced as tolerated. Patient was able to tolerate diet. Surgeon recommended outpatient follow-up with PCP for surgery referral and consideration for elective cholecystectomy. Patient clinically stabilized and was ready for discharge FINAL DIAGNOSES: Possible choledocholithiasis Cholelithiasis Transaminitis Intractable abdominal pain DISCHARGE MEDICATIONS: See Medication Reconciliation list. DISCHARGE INSTRUCTIONS: Patient was discharged home. Follow-up with a primary care provider. Referral for surgery and consideration for elective cholecystectomy was recommended. I have been assigned to dictate discharge summary for this account. I was not involved in the patient's management. Meeta Garcia NP Jan 16, 2020 07:24
== END 2020-01-14 21:28 | disposition home or self-care (01) ==
LOC: EMR 09:59 → 4E 11:53 → EDBEDREQ 13:08
DX: K80.70 Calculus of gallbladder and bile duct without cholecystitis without obstruction (principal); R74.01 Elevation of levels of liver transaminase levels; N28.1 Cyst of kidney, acquired
CPT/HCPCS: 36415; 74181; 76700; 80048; 80053; 81003; 81025; 82150; 82248; 83690; 83735; 84702; 85025; 85610; 85651; 85730; 86140; 87040; 96365; 96375; 99285; J2405; U0002